=== PATIENT | male | born 1955 | race Two or more races ===

== ENCOUNTER 2021-05-27 14:33 | Inpatient (IN) | payer OTHER ==
[~2021-05-27] VITALS: Ht 167.6 cm; Wt 84.0 kg
--- NOTE | 2021-05-27 16:08 | PHYS DOC ---
General Adult EDM: Chief Complaint: URINARY RETENTION HPI: HPI: Patient is a 65-year-old male who presents to the emergency department today for urinary retention. Patient reports that he has not had any urine output for 3 days and his last bowel movement was on Tuesday. He reports dribbling. Patient is reporting constipation, abdominal distention and suprapubic pain. He reports that he was seen at the urgent care on Tuesday and was given Cipro for a urinary tract infection and placed on Flomax. Patient reports that he has been taking these medications without any relief in his symptoms. He denies any fevers, nausea, vomiting. He denies any medical history or surgical history. Review of Systems: Review of Systems: Constitutional: See HPI GI: See HPI : See HPI Heart Score: C/O Chest Pain: N/A Risk Factors: Risk Factors: DM, Current or recent (<one month) smoker, HTN, HLP, family history of CAD, obesity. Risk Scores: Score 0 - 3: 2.5% MACE over next 6 weeks - Discharge Home Score 4 - 6: 20.3% MACE over next 6 weeks - Admit for Clinical Observation Score 7 - 10: 72.7% MACE over next 6 weeks - Early Invasive Strategies Allergies: Allergies: Allergies Coded Allergies Type Severity Reaction Last Updated Verified No Known Drug Allergies 05/27/21 No Physical Exam: PE: Constitutional: Well developed, well nourished, no acute distress, non-toxic appearance. [] HENT: Normocephalic, atraumatic, bilateral external ears normal, oropharynx moist, no oral exudates, nose normal. [] Eyes: PERRL, EOMI, conjunctiva normal, no discharge. [] Neck: Normal range of motion, no stridor Cardiovascular:Heart rate regular rhythm, no murmur [] Lungs & Thorax: Bilateral breath sounds clear to auscultation [] Abdomen: Bowel sounds normal, firm, suprapubic tenderness with palpation, no masses, no pulsatile masses. [] Skin: Warm, dry, no erythema, no rash. [] Back: No tenderness Extremities: No tenderness, no cyanosis, no clubbing, ROM intact, no edema. [] Neurologic: Alert and oriented X 3, normal motor function, normal sensory function, no focal deficits noted. [] Psychologic: Affect normal, judgement normal, mood normal. [] Current Patient Data: Labs: Laboratory Tests Test 05/27/21 15:55 05/27/21 16:36 Urine Collection Type U cath Urine Color (Auto) Yellow Urine Turbidity Clear Urine pH (Auto) 5.0 Urine Specific [place] 1.007 Urine Protein (Auto) Negative mg/dL Urine Glucose (Auto)(UA) Negative mg/dL Urine Ketones (Auto) Negative mg/dL Urine Blood (Auto) Small Urine Nitrite Negative Urine Bilirubin (Auto) Negative Urine Urobilinogen (Auto) Normal mg/dL Urine Leukocyte Esterase (Auto) Negative Urine RBC 1-2 /HPF Urine WBC 1-4 /HPF Urine Transitional Epithelial Cells Occ /LPF Urine Bacteria 0 /HPF White Blood Count 13.0 x10^3/uL Red Blood Count 5.13 x10^6/uL Hemoglobin 14.9 g/dL Hematocrit 44.4 % Mean Corpuscular Volume 87 fL Mean Corpuscular Hemoglobin 29 pg Mean Corpuscular Hemoglobin Concent 34 g/dL Red Cell Distribution Width 13.7 % Platelet Count 176 x10^3/uL Neutrophils (%) (Auto) 76 % Lymphocytes (%) (Auto) 11 % Monocytes (%) (Auto) 12 % Eosinophils (%) (Auto) 1 % Basophils (%) (Auto) 0 % Neutrophils # (Auto) 9.9 x10^3/uL Lymphocytes # (Auto) 1.4 x10^3/uL Monocytes # (Auto) 1.6 x10^3/uL Eosinophils # (Auto) 0.1 x10^3/uL Basophils # (Auto) 0.0 x10^3/uL Sodium Level 131 mmol/L Potassium Level 4.7 mmol/L Chloride Level 94 mmol/L Carbon Dioxide Level 17 mmol/L Anion Gap 20 Blood Urea Nitrogen 77 mg/dL Creatinine 7.7 mg/dL Estimated GFR (Cockcroft-Gault) 7.2 BUN/Creatinine Ratio 10 Glucose Level 95 mg/dL Calcium Level 7.5 mg/dL Total Bilirubin 0.7 mg/dL Aspartate Amino Transf (AST/SGOT) 61 U/L Alanine Aminotransferase (ALT/SGPT) 78 U/L Alkaline Phosphatase 91 U/L Total Protein 7.1 g/dL Albumin 3.2 g/dL Albumin/Globulin Ratio 0.8 Current Medications Medications (Trade) Dose Ordered Sig/Skye Route PRN Reason Start Time Stop Time Status Last Admin Dose Admin Tamsulosin HCl (Flomax) 0.4 mg BID PO 05/27/21 21:00 Acetaminophen (Tylenol) 650 mg PRN Q6HRS PRN PO MILD PAIN / TEMP > 100.3'F 05/27/21 17:30 Ondansetron HCl (Zofran) 4 mg PRN Q4HRS PRN IVP NAUSEA/VOMITING 05/27/21 17:30 Tramadol HCl (Ultram) 50 mg PRN Q6HRS PRN PO PAIN 05/27/21 17:30 Fentanyl Citrate (Fentanyl 2ml Vial) 25 mcg PRN Q3HRS PRN IVP SEVERE PAIN 7-10 05/27/21 17:30 Heparin Sodium (Porcine) (Heparin Sodium) 5,000 unit Q8HRS SQ 05/27/21 22:00 Psyllium Hydrophilic Mucilloid (Metamucil Fiber Packet) 1 pkt QHS PO 05/27/21 21:00 Polyethylene Glycol (miraLAX PACKET) 17 gm PRN BID PRN PO CONSTIPATION 05/27/21 17:30 EKG: EKG: [] Radiology/Procedures: Radiology/Procedures: []INDICATION: Reason: ABDOMINAL DISTENTION, CONSTIPATION, R/O OBSTRUCTION / Spl. Instructions: / History: COMPARISON: None. TECHNIQUE: Axial CT images were obtained through the abdomen and pelvis without intravenous contrast. One or more of the following individualized dose reduction techniques were utilized for this examination: 1. Automated exposure control; 2. Adjustment of the mA and/or kV according to patient size; 3. Use of iterative reconstruction technique. FINDINGS: There is some distention of the distal esophagus with air and a small amount of fluid. Vascular: Scattered calcific atherosclerosis. Hepatobiliary: No intrahepatic biliary duct dilation. Pancreas: No peripancreatic edema. Spleen: Spleen unremarkable. Renal/Bladder: There is bilateral perinephric stranding as well as small amount of fluid most prominent on the right. Low-density lesion of the left kidney may be cystic in nature measuring approximately 32 mm. Urinary bladder is decompressed. Prostate appears enlarged. Catheter seen at the bladder. Symmetric appearance of the renal pelvis bilaterally. Calcification in the right hemipelvis. Given the location would favor that this is secondary to a phlebolith rather than a distal ureter stone. Gastrointestinal: There is some prominence the wall of the distal sigmoid and rectal region with some adjacent edema to the fat and small fluid in the presacral region. Tortuous appearance of colon with redundant appearance. There is some distention of the colon with gas and intraluminal content. At the right lower quadrant there is a tubular structure identified measuring up to about 8 mm and distended with intraluminal content. A portion of it is obscured by adjacent unopacified bowel loops. There is some edema and fluid seen tracking within the region. Limited assessment secondary to lack of contrast. Small fat-containing umbilical hernia. Degenerative changes the spine with scoliotic curvature with multilevel central canal and neural foraminal stenosis. Degenerative changes the bilateral hips. IMPRESSION: * Bilateral perinephric stranding is seen right greater than left with some distention of the right ureter also identified. Is also some fluid and edema tracking adjacent to the right ureter and also seen tracking adjacent to the loops of bowel the right lower quadrant. Could be related to urinary tract causes such as urinary tract infection or recently passed urinary tract stone. In addition this area of edema and fluid is also seen adjacent to the partially visualized suspected appendix with the appendix mildly dilated with fluid and air with portions of the appendix obscured secondary to lack of contrast and multiple unopacified loops of bowel within the region. Given this dilatation and fluid with edema in the region would correlate with symptoms since appendicitis cannot be excluded on this examination and CT with intravenous and oral contrast could better assess the GI tract given that it is unclear whether this fluid and edema is associated with a right renal/ureter process or if it is related to appendiceal inflammation. * There is also some wall thickening of the distal colon at the distal sigmoid and rectum with adjacent edema and fluid. Causes such as a distal colitis is not excluded. * There is a tortuous redundant appearance of the large bowel. * Suspected cystic lesion left kidney. * There is some edema to the fat seen adjacent to the prostate which appears enlarged. Could be associated with the adjacent distal sigmoid to rectal inflammation but superimposed prostatitis is not excluded given this finding. Electronically signed by: Vanesa Mccollum MD (05/27/2021 5:01 PM) [id number] DICTATED and SIGNED BY: VANESA MCCOLLUM MD DATE: 05/27/21 0290 Course & Med Decision Making: Course & Med Decision Making Pertinent Labs and Imaging studies reviewed. (See chart for details) [] Patient presents to the emergency department today for urinary retention and constipation. Patient reports he has not had any urinary output for 3 days and his last bowel movement was Tuesday. Bladder scan was ordered. Santa was placed by [employer]ODUCTION [employer]. Urinalysis, CBC and CMP performed. CT of abdomen and pelvis performed as patient is reporting distention, abdominal pain and constipation, concern for obstruction. Was noted to have leukocytosis with a white blood cell 13. Sodium was 131. BUN 77, creatinine 7.7 indicating acute kidney injury. Urinalysis does not show any signs of infection. Patient had approximately 2700 cc of urine output in his Santa catheter. CT T scan of abdomen and pelvis does show perinephric stranding and edema and inflammation surrounding his right ureter. The radiologist read it as possible appendicitis versus inflammation of the right ureter. Patient was also noted to have signs of colitis on his scan. I discussed these findings with urologist acquisitions analyst and they advised to continue to give patient Flomax and order a renal ultrasound. I discussed these findings with Dr. Macias with nephrology who ordered IV fluids and repeat labs for the morning. surgery consult placed. Discussed these findings with Dr. Hogan who agreed to admit the patient under his services for urinary retention and acute kidney injury. IV antibiotics ordered. I discussed these findings with patient and family member and they are agreeable to admission. ER bridge orders placed at this time 1755. Rupinder Disclaimer: Rupinder Disclaimer: This electronic medical record was generated, in whole or in part, using a voice recognition dictation system. Departure Departure Impression: Primary Impression: Urinary retention Additional Impression: GERRY (acute kidney injury) Disposition: 09 ADMITTED INPATIENT Admitting Physician: DANDRE Condition: STABLE Referrals: PARDEEP SANDOVAL III, MD (PCP) TAVO HAYES APRN May 27, 2021 16:07
[2021-05-27 16:31] LABS: BACTERIA,URINE 0 /HPF (0-FEW)
[2021-05-27 16:45] LABS: BASO % 0 % (0-3); EOS # 0.1 x10^3/uL (0.0-0.7); EOS % 1 % (0-3); HEMATOCRIT 44.4 % (39.0-53.0); HEMOGLOBIN 14.9 g/dL (13.0-17.5); LYMPH # 1.4 x10^3/uL (1.0-4.8); LYMPH % 11 % (24-48); MEAN CORPUSCULAR HEMOGLOBIN 29 pg (25-35); MEAN CORPUSCULAR HGB CONC 34 g/dL (31-37); MEAN CORPUSCULAR VOLUME 87 fL (79-100); MONO # 1.6 x10^3/uL (0.0-1.1); MONO % 12 % (0-9); NEUT # 9.9 x10^3/uL (1.8-7.7); NEUT % 76 % (31-73); PLATELET COUNT 176 x10^3/uL (140-400); RED BLOOD COUNT 5.13 x10^6/uL (4.30-5.70); RED CELL DISTRIBUTION WIDTH 13.7 % (11.5-14.5)
[2021-05-27 16:53] LABS: CALCIUM 7.5 mg/dL (8.5-10.1); CREATININE 7.7 mg/dL (0.7-1.3); GFR 7.2; POTASSIUM 4.7 mmol/L (3.5-5.1)
[2021-05-27 16:58] LABS: ALBUMIN 3.2 g/dL (3.4-5.0); ALBUMIN/GLOBULIN RATIO 0.8 (1.0-1.7); TOTAL BILIRUBIN 0.7 mg/dL (0.2-1.0); TOTAL PROTEIN 7.1 g/dL (6.4-8.2)
--- NOTE | 2021-05-27 17:03 | RAD ---
INDICATION: Reason: ABDOMINAL DISTENTION, CONSTIPATION, R/O OBSTRUCTION / Spl. Instructions: / Histo ry: COMPARISON: None. TECHNIQUE: Axial CT images were obtained through the abdomen and pelvis without intravenous contrast. One or more of the following individualized dose reduction techniques were utilized for this examinat ion: 1. Automated exposure control; 2. Adjustment of the mA and/or kV according to patient size; 3 . Use of iterative reconstruction technique. FINDINGS: There is some distention of the distal esophagus with air and a small amount of fluid. Vascular: Scattered calcific atherosclerosis. Hepatobiliary: No intrahepatic biliary duct dilation. Pancreas: No peripancreatic edema. Spleen: Spleen unremarkable. Renal/Bladder: There is bilateral perinephric stranding as well as small amount of fluid most promine nt on the right. Low-density lesion of the left kidney may be cystic in nature measuring approximatel y 32 mm. Urinary bladder is decompressed. Prostate appears enlarged. Catheter seen at the bladder. Sy mmetric appearance of the renal pelvis bilaterally. Calcification in the right hemipelvis. Given the location would favor that this is secondary to a phlebolith rather than a distal ureter stone. Gastrointestinal: There is some prominence the wall of the distal sigmoid and rectal region with some adjacent edema to the fat and small fluid in the presacral region. Tortuous appearance of colon with redundant appearance. There is some distention of the colon with gas and intraluminal content. At th e right lower quadrant there is a tubular structure identified measuring up to about 8 mm and distend ed with intraluminal content. A portion of it is obscured by adjacent unopacified bowel loops. There is some edema and fluid seen tracking within the region. Limited assessment secondary to lack of cont rast. Small fat-containing umbilical hernia. Degenerative changes the spine with scoliotic curvature with multilevel central canal and neural fora juliane stenosis. Degenerative changes the bilateral hips. IMPRESSION: * Bilateral perinephric stranding is seen right greater than left with some distention of the right ureter also identified. Is also some fluid and edema tracking adjacent to the right ureter and also seen tracking adjacent to the loops of bowel the right lower quadrant. Could be related to urinary tr act causes such as urinary tract infection or recently passed urinary tract stone. In addition this a patricia of edema and fluid is also seen adjacent to the partially visualized suspected appendix with the appendix mildly dilated with fluid and air with portions of the appendix obscured secondary to lack o f contrast and multiple unopacified loops of bowel within the region. Given this dilatation and fluid with edema in the region would correlate with symptoms since appendicitis cannot be excluded on this examination and CT with intravenous and oral contrast could better assess the GI tract given that it is unclear whether this fluid and edema is associated with a right renal/ureter process or if it is related to appendiceal inflammation. * There is also some wall thickening of the distal colon at the distal sigmoid and rectum with adjac ent edema and fluid. Causes such as a distal colitis is not excluded. * There is a tortuous redundant appearance of the large bowel. * Suspected cystic lesion left kidney. * There is some edema to the fat seen adjacent to the prostate which appears enlarged. Could be asso ciated with the adjacent distal sigmoid to rectal inflammation but superimposed prostatitis is not ex cluded given this finding. Electronically signed by: Edinson Jaramillo MD (05/27/2021 5:01 PM) [id number]
--- NOTE | 2021-05-27 17:22 | PDOC1 ---
History and Physical Date of Admission Date of Admission DATE: 05/27/21 TIME: 17:22 Identification/Chief Complaint Chief Complaint Abdominal pain, urinary retention Source Source: Caregiver, Chart review, Patient History of Present Illness History of Present Illness Mr Wright is a 64yo male, divehi-speaking only, with no past medical history comes to the ED accompanied by his son who assists in translation complaining of worsening suprapubic pain, constipation and urinary retention has been going on since 05/24/2021. When he initially had the pain urinary retention on 320 he went to urgent care and was told this was prostatitis and given prescription for Flomax and Cipro. He began taking medication on 05/25/2021 but failed to have any improvement and went to his primary care physician 05/27/2021 and given his symptoms was instructed to come directly to the ED. His last bowel movement was on Tuesday. He denies any fevers, nausea, vomiting. He denies any medical history or surgical history. He does not smoke drink or use illicit substances. No recent travel or sick contacts. He is fully vaccinated against COVID-19 including booster. Labs with WBC 13, Hb 14.9, platelets 176, NA 131, K4.7, BUN 77, CR 7.7, anion gap 20, glucose 95, calcium 7.5, albumin 3.2, alkaline phosphatase 91, ALT 78, AST 61, bilirubin 0.7, urinalysis with blood otherwise bland. CT abdomen pelvis with enlarged prostate, bilateral perinephric stranding right >>> left with some distention of the right ureter, possible cystic left kidney lesion, concern for slightly enlarged appendix, some distal colon possible inflammatory changes. Due to lack urination Santa catheter was placed in the ED with 2.7 L of urine output. He felt significant relief of his abdominal pain after this. Still without bowel movement. Admitted for further care. Past Medical History Cardiovascular: No pertinent hx Past Surgical History Past Surgical History: No pertinent history Family History Family History: No Significant Social History Smoke: No ALCOHOL: none Drugs: None Allergies Allergies: Coded Allergies: No Known Drug Allergies (Unverified , 05/27/21) ROS General: YES: Fatigue, Malaise, Appetite; No: Chills, Night Sweats, Other PSYCHOLOGICAL ROS: No: Anxiety, Behavioral Disorder, Concentration difficultie, Decreased libido, Depression, Disorientation, Hallucinations, Hostility, Irritablity, Memory difficulties, Mood Swings, Obsessive thoughts, Physical abuse, Sexual abuse, Sleep disturbances, Suicidal ideation, Other Eyes: No Blurry vision, No Decreased vision, No Double vision, No Dry eyes, No Excessive tearing, No Eye Pain, No Itchy Eyes, No Loss of vision, No Photophobia, No Scotomata, No Uses contacts, No Uses glasses, No Other HEENT: No: Heacaches, Visual Changes, Hearing change, Nasal congestion, Nasal discharge, Oral lesions, Sinus pain, Sore Throat, Epistaxis, Sneezing, Snoring, Tinnitus, Vertigo, Vocal changes, Other ALLERGY AND IMMUNOLOGY: No: Hives, Insect Bite Sensitivity, Itchy/Watery Eyes, Nasal Congestion, Post Nasal Drip, Seasonal Allergies, Other Hematological and Lymphatic: No: Bleeding Problems, Blood Clots, Blood Transfusions, Brusing, Night Sweats, Pallor, Swollen Lymph Nodes, Other ENDOCRINE: No: Breast Changes, Galactorrhea, Hair Pattern Changes, Hot Flashes, Malaise/lethargy, Mood Swings, Palpitations, Polydipsia/polyuria, Skin Changes, Temperature Intolerance, Unexpected Weight Changes, Other Breast: No New/Changing Breast Lumps, No Nipple changes, No Nipple discharge, No Other Respiratory: No: Cough, Hemoptysis, Orthopnea, Pleuritic Pain, Shortness of breath, SOB with excertion, Sputum Changes, Stridor, Tachypnea, Wheezing, Other Cardiovascular: No Chest Pain, No Palpitations, No Orthopnea, No Paroxysmal Noc. Dyspnea, No Edema, No Lt Headedness, No Other Gastrointestinal: Yes Nausea, Yes Abdominal Pain, Yes Constipation; No Vomiting, No Diarrhea, No Melena, No Hematochezia, No Other Genitourinary: YES Retention, YES Urgency, YES Pain; No Dysuria, No Frequency, No Incontinence, No Hematuria, No Discharge, No Flank Pain, No Other, No , No , No , No , No , No , No Musculoskeletal: No Gait Disturbance, No Joint Pain, No Joint Stiffness, No Joint Swelling, No Muscle Pain, No Muscular Weakness, No Pain In:, No Swelling In:, No Other Neurological: No Behavorial Changes, No Bowel/Bladder ControlChng, No Confusion, No Dizziness, No Gait Disturbance, No Headaches, No Impaired Coord/balance, No Memory Loss, No Numbness/Tingling, No Seizures, No Speech Problems, No Tremors, No Visual Changes, No Weakness, No Other Skin: No Dry Skin, No Eczema, No Hair Changes, No Lumps, No Mole Changes, No Mottling, No Nail Changes, No Pruritus, No Rash, No Skin Lesion Changes, No Other, No Acne Physical Exam General: Alert, Oriented X3, Cooperative, moderate distress HEENT: Atraumatic, PERRLA, EOMI, Mucous membr. moist/pink Lungs: Clear to auscultation, Normal air movement Heart: S1S2, RRR, no thrills, no rubs, no gallops, no murmurs Abdomen: Normal bowel sounds, Soft, No hepatosplenomegaly, No masses, Other (suprapubic tenderness) Male Genitals Exam: normal genitalia, high riding prostate Rectal Exam: other (enlarged prostate) Extremities: No clubbing, No cyanosis, No edema, Normal pulses, No tenderness/swelling Skin: No rashes, No breakdown, No significant lesion Neuro: Normal gait, Normal speech, Strength at 5/5 X4 ext, Normal tone, Sensation intact, Cranial nerves 3-12 NL, Reflexes 2+ Psych/Mental Status: Mental status NL, Mood NL Vitals Vitals Vital Signs Date Time Temp Pulse Resp B/P (MAP) Pulse Ox O2 Delivery O2 Flow Rate FiO2 05/27/21 16:02 97.9 81 16 181/105 (130) 97 97.9 Labs Labs Laboratory Tests Test 05/27/21 15:55 05/27/21 16:36 Urine Collection Type U cath Urine Color (Auto) Yellow Urine Turbidity Clear Urine pH (Auto) 5.0 (<5.0-8.0) Urine Specific Arnold 1.007 (1.000-1.030) Urine Protein (Auto) Negative mg/dL (Negative) Urine Glucose (Auto)(UA) Negative mg/dL (Negative) Urine Ketones (Auto) Negative mg/dL (Negative) Urine Blood (Auto) Small (Negative) Urine Nitrite Negative (Negative) Urine Bilirubin (Auto) Negative (Negative) Urine Urobilinogen (Auto) Normal mg/dL (Normal) Urine Leukocyte Esterase (Auto) Negative (Negative) Urine RBC 1-2 /HPF (0-2) Urine WBC 1-4 /HPF (0-4) Urine Transitional Epithelial Cells Occ /LPF Urine Bacteria 0 /HPF (0-FEW) White Blood Count 13.0 x10^3/uL (4.0-11.0) Red Blood Count 5.13 x10^6/uL (4.30-5.70) Hemoglobin 14.9 g/dL (13.0-17.5) Hematocrit 44.4 % (39.0-53.0) Mean Corpuscular Volume 87 fL (79-100) Mean Corpuscular Hemoglobin 29 pg (25-35) Mean Corpuscular Hemoglobin Concent 34 g/dL (31-37) Red Cell Distribution Width 13.7 % (11.5-14.5) Platelet Count 176 x10^3/uL (140-400) Neutrophils (%) (Auto) 76 % (31-73) Lymphocytes (%) (Auto) 11 % (24-48) Monocytes (%) (Auto) 12 % (0-9) Eosinophils (%) (Auto) 1 % (0-3) Basophils (%) (Auto) 0 % (0-3) Neutrophils # (Auto) 9.9 x10^3/uL (1.8-7.7) Lymphocytes # (Auto) 1.4 x10^3/uL (1.0-4.8) Monocytes # (Auto) 1.6 x10^3/uL (0.0-1.1) Eosinophils # (Auto) 0.1 x10^3/uL (0.0-0.7) Basophils # (Auto) 0.0 x10^3/uL (0.0-0.2) Sodium Level 131 mmol/L (136-145) Potassium Level 4.7 mmol/L (3.5-5.1) Chloride Level 94 mmol/L (98-107) Carbon Dioxide Level 17 mmol/L (21-32) Anion Gap 20 (6-14) Blood Urea Nitrogen 77 mg/dL (8-26) Creatinine 7.7 mg/dL (0.7-1.3) Estimated GFR (Cockcroft-Gault) 7.2 BUN/Creatinine Ratio 10 (6-20) Glucose Level 95 mg/dL (70-99) Calcium Level 7.5 mg/dL (8.5-10.1) Total Bilirubin 0.7 mg/dL (0.2-1.0) Aspartate Amino Transf (AST/SGOT) 61 U/L (15-37) Alanine Aminotransferase (ALT/SGPT) 78 U/L (16-63) Alkaline Phosphatase 91 U/L (46-116) Total Protein 7.1 g/dL (6.4-8.2) Albumin 3.2 g/dL (3.4-5.0) Albumin/Globulin Ratio 0.8 (1.0-1.7) Laboratory Tests Test 05/27/21 15:55 05/27/21 16:36 Urine Collection Type U cath Urine Color (Auto) Yellow Urine Turbidity Clear Urine pH (Auto) 5.0 (<5.0-8.0) Urine Specific Arnold 1.007 (1.000-1.030) Urine Protein (Auto) Negative mg/dL (Negative) Urine Glucose (Auto)(UA) Negative mg/dL (Negative) Urine Ketones (Auto) Negative mg/dL (Negative) Urine Blood (Auto) Small (Negative) Urine Nitrite Negative (Negative) Urine Bilirubin (Auto) Negative (Negative) Urine Urobilinogen (Auto) Normal mg/dL (Normal) Urine Leukocyte Esterase (Auto) Negative (Negative) Urine RBC 1-2 /HPF (0-2) Urine WBC 1-4 /HPF (0-4) Urine Transitional Epithelial Cells Occ /LPF Urine Bacteria 0 /HPF (0-FEW) White Blood Count 13.0 x10^3/uL (4.0-11.0) Red Blood Count 5.13 x10^6/uL (4.30-5.70) Hemoglobin 14.9 g/dL (13.0-17.5) Hematocrit 44.4 % (39.0-53.0) Mean Corpuscular Volume 87 fL (79-100) Mean Corpuscular Hemoglobin 29 pg (25-35) Mean Corpuscular Hemoglobin Concent 34 g/dL (31-37) Red Cell Distribution Width 13.7 % (11.5-14.5) Platelet Count 176 x10^3/uL (140-400) Neutrophils (%) (Auto) 76 % (31-73) Lymphocytes (%) (Auto) 11 % (24-48) Monocytes (%) (Auto) 12 % (0-9) Eosinophils (%) (Auto) 1 % (0-3) Basophils (%) (Auto) 0 % (0-3) Neutrophils # (Auto) 9.9 x10^3/uL (1.8-7.7) Lymphocytes # (Auto) 1.4 x10^3/uL (1.0-4.8) Monocytes # (Auto) 1.6 x10^3/uL (0.0-1.1) Eosinophils # (Auto) 0.1 x10^3/uL (0.0-0.7) Basophils # (Auto) 0.0 x10^3/uL (0.0-0.2) Sodium Level 131 mmol/L (136-145) Potassium Level 4.7 mmol/L (3.5-5.1) Chloride Level 94 mmol/L (98-107) Carbon Dioxide Level 17 mmol/L (21-32) Anion Gap 20 (6-14) Blood Urea Nitrogen 77 mg/dL (8-26) Creatinine 7.7 mg/dL (0.7-1.3) Estimated GFR (Cockcroft-Gault) 7.2 BUN/Creatinine Ratio 10 (6-20) Glucose Level 95 mg/dL (70-99) Calcium Level 7.5 mg/dL (8.5-10.1) Total Bilirubin 0.7 mg/dL (0.2-1.0) Aspartate Amino Transf (AST/SGOT) 61 U/L (15-37) Alanine Aminotransferase (ALT/SGPT) 78 U/L (16-63) Alkaline Phosphatase 91 U/L (46-116) Total Protein 7.1 g/dL (6.4-8.2) Albumin 3.2 g/dL (3.4-5.0) Albumin/Globulin Ratio 0.8 (1.0-1.7) Images Images CT ABDOMEN PELVIS WO CONTRAST: There is some distention of the distal esophagus with air and a small amount of fluid. Vascular: Scattered calcific atherosclerosis. Hepatobiliary: No intrahepatic biliary duct dilation. Pancreas: No peripancreatic edema. Spleen: Spleen unremarkable. Renal/Bladder: There is bilateral perinephric stranding as well as small amount of fluid most prominent on the right. Low-density lesion of the left kidney may be cystic in nature measuring approximately 32 mm. Urinary bladder is decompressed. Prostate appears enlarged. Catheter seen at the bladder. Symmetric appearance of the renal pelvis bilaterally. Calcification in the right hemipelvis. Given the location would favor that this is secondary to a phlebolith rather than a distal ureter stone. Gastrointestinal: There is some prominence the wall of the distal sigmoid and rectal region with some adjacent edema to the fat and small fluid in the presacral region. Tortuous appearance of colon with redundant appearance. There is some distention of the colon with gas and intraluminal content. At the right lower quadrant there is a tubular structure identified measuring up to about 8 mm and distended with intraluminal content. A portion of it is obscured by adjacent unopacified bowel loops. There is some edema and fluid seen tracking within the region. Limited assessment secondary to lack of contrast. Small fat-containing umbilical hernia. Degenerative changes the spine with scoliotic curvature with multilevel central canal and neural foraminal stenosis. Degenerative changes the bilateral hips. IMPRESSION: * Bilateral perinephric stranding is seen right greater than left with some distention of the right ureter also identified. Is also some fluid and edema tracking adjacent to the right ureter and also seen tracking adjacent to the loops of bowel the right lower quadrant. Could be related to urinary tract causes such as urinary tract infection or recently passed urinary tract stone. In addition this area of edema and fluid is also seen adjacent to the partially visualized suspected appendix with the appendix mildly dilated with fluid and air with portions of the appendix obscured secondary to lack of contrast and multiple unopacified loops of bowel within the region. Given this dilatation and fluid with edema in the region would correlate with symptoms since appendicitis cannot be excluded on this examination and CT with intravenous and oral contrast could better assess the GI tract given that it is unclear whether this fluid and edema is associated with a right renal/ureter process or if it is related to appendiceal inflammation. * There is also some wall thickening of the distal colon at the distal sigmoid and rectum with adjacent edema and fluid. Causes such as a distal colitis is not excluded. * There is a tortuous redundant appearance of the large bowel. * Suspected cystic lesion left kidney. * There is some edema to the fat seen adjacent to the prostate which appears enlarged. Could be associated with the adjacent distal sigmoid to rectal inflammation but superimposed prostatitis is not excluded given this finding. VTE Prophylaxis Ordered VTE Prophylaxis Devices: No VTE Pharmacological Prophylaxi: Yes Assessment/Plan Assessment/Plan Intractable abdominal pain -likely due to urinary retention, prostatitis, early pyelonephritis. Less likely appendicitis. Will have general surgery evaluate and review CT. Urinary retention -likely due to acute prostatitis. Will maintain Santa cath eter. Consult urology for further recommendations. Tamsulosin twice daily for now. Constipation -aggressive bowel regimen. Possibly secondary to prostatitis. GERRY -likely vasomotor nephropathy from prostatitis but also postobstructive due to urinary retention. Will monitor creatinine. Consult nephrology. Hyponatremia -likely hypovolemic. Will monitor. Anion gap metabolic acidosis -likely due to uremia from renal failure. Will monitor SIRS - with GERRY, likely due to prostatitis. Will give aggressive IVF, cipro for presumptive prostatitis Uremia -due to renal failure. Will monitor Transaminitis -possibly due to constipation. Will check acute hepatitis profile. Monitor LFTs. FEN - regular diet PPX - heparin FULL CODE Dispo - inpatient Justifications for Admission Other Justification NOE GOLDBERG MD May 27, 2021 17:22
[2021-05-27] MEDS ORDERED: POLYETHYLENE GLYCOL 3350 17 GM PACKET. PO PRN (17:30)
[2021-05-27] MEDS ORDERED: ACETAMINOPHEN 325 MG TABLET. PO PRN (17:30)
[2021-05-27] MEDS ORDERED: traMADol 50 MG TABLET PO PRN (17:30)
[2021-05-27] MEDS ORDERED: ONDANSETRON PF 4 MG/2 ML VIAL. IVP PRN ×2 (17:30→18:00)
[2021-05-27] MEDS ORDERED: fentaNYL PF VIAL 100 MCG/2 ML VIAL IVP PRN (17:30)
[2021-05-27] MEDS ORDERED: MORPHINE SULFATE 2 MG/ML INJ. IVP PRN (18:00)
[2021-05-27] MEDS ORDERED: TAMSULOSIN 0.4 MG CAP.ER.24H. PO ONE (18:00)
[2021-05-27] MEDS ORDERED: PIP/TAZO PER PHARMACY MC PRN (18:00)
[2021-05-27] MEDS ORDERED: IV NORMAL SALINE 1000ML BAG 1,000 ML IV ONE (18:00)
[2021-05-27] MEDS ORDERED: PIPERACILLIN/TAZOBACTAM 2.25 GM in IV NORMAL SALINE 50ML 50 ML IV SCH (19:00)
[2021-05-27 20:02] VITALS: BP 132/78
--- NOTE | 2021-05-27 20:17 | RAD ---
EXAM: RENAL ULTRASOUND CLINICAL HISTORY: Reason: urinary retention / Spl. Instructions: / History: COMPARISON: None available. TECHNIQUE: Ultrasound examination of the bilateral kidneys and urinary bladder was performed. FINDINGS: Right kidney measures 12.4 cm long axis. No hydronephrosis. Left kidney measures 12.7 cm in long axis. No hydronephrosis. Simple cyst in the left kidney measurin g up to 3.5 cm Bladder is decompressed not well evaluated. Visualized portions aorta and IVC are unremarkable. IMPRESSION: No hydronephrosis. Bladder is decompressed. Electronically signed by: Henri Hills MD (05/27/2021 8:15 PM) FLORI
[2021-05-27] MEDS: HEPARIN for SUB-Q USE 5,000 UNIT/ML VIAL. SQ SCH (21:35)
[2021-05-27] MEDS: TAMSULOSIN 0.4 MG CAP.ER.24H. PO SCH (21:35)
[2021-05-27] MEDS: PSYLLIUM HUSK (SUGAR FREE) 1 PKT PACKET PO SCH (21:36)
[2021-05-27 23:30] VITALS: BP 123/82
[2021-05-28 03:24] VITALS: BP 114/73
[2021-05-28] MEDS: HEPARIN for SUB-Q USE 5,000 UNIT/ML VIAL. SQ SCH ×3 (06:19→20:55)
[2021-05-28 07:15] VITALS: BP 120/85
[2021-05-28] MEDS: TAMSULOSIN 0.4 MG CAP.ER.24H. PO SCH ×2 (08:46→20:46)
--- NOTE | 2021-05-28 09:15 | PDOC2 ---
CONSULT Date of Consult Date of Consult DATE: 05/28/21 TIME: 09:10 Reason for Consult Reason for Consult: abnormal appendix on CT Referring Physician Referring Physician: ER Identification/Chief Complaint Chief Complaint suprapubic pain Source Source: Caregiver, Chart review, Patient History of Present Illness Reason for Visit: Admitted with suprapubic and groin pain worsening since 05/24. Symptoms began 05/24 with retention, pain. Seen in urgent care, treated for prostatitis with flomax and cipro. He continued to have inability to void, worsening p ressure/pain. Seen in ER, immediate relief with lopez catheter placement. Currently denies pain, no nausea, no fevers. Still constipation issues Past Medical History Cardiovascular: No pertinent hx Past Surgical History Past Surgical History: No pertinent history Family History Family History: No Significant Social History No ALCOHOL: none Drugs: None Current Problem List Problem List Problems Medical Problems: (1) GERRY (acute kidney injury) Status: Acute (2) Urinary retention Status: Acute Current Medications Current Medications Current Medications Tamsulosin HCl (Flomax) 0.4 mg BID PO Last administered on 05/28/21at 08:46; Start 05/27/21 at 21:00 Acetaminophen (Tylenol) 650 mg PRN Q6HRS PRN PO MILD PAIN / TEMP > 100.3'F; Start 05/27/21 at 17:30 Ondansetron HCl (Zofran) 4 mg PRN Q4HRS PRN IVP NAUSEA/VOMITING; Start 05/27/21 at 17:30 Tramadol HCl (Ultram) 50 mg PRN Q6HRS PRN PO PAIN; Start 05/27/21 at 17:30 Fentanyl Citrate (Fentanyl 2ml Vial) 25 mcg PRN Q3HRS PRN IVP SEVERE PAIN 7-10; Start 05/27/21 at 17:30 Heparin Sodium (Porcine) (Heparin Sodium) 5,000 unit Q8HRS SQ Last administered on 05/28/21at 06:19; Start 05/27/21 at 22:00 Psyllium Hydrophilic Mucilloid (Metamucil Fiber Packet) 1 pkt QHS PO Last administered on 05/27/21at 21:36; Start 05/27/21 at 21:00 Polyethylene Glycol (miraLAX PACKET) 17 gm PRN BID PRN PO CONSTIPATION; Start 05/27/21 at 17:30 Tamsulosin HCl (Flomax) 0.4 mg 1X ONCE PO ; Start 05/27/21 at 18:00; Stop 05/27/21 at 18:05; Status DC Piperacillin Sod/ Tazobactam Sod (Zosyn Per Pharmacy) 1 each PRN DAILY PRN MC SEE COMMENTS; Start 05/27/21 at 18:00 Sodium Chloride 1,000 ml @ 125 mls/hr 1X ONCE IV Last administered on 05/27/21at 18:42; Start 05/27/21 at 18:00; Stop 05/28/21 at 01:59; Status DC Ondansetron HCl (Zofran) 4 mg PRN Q8HRS PRN IVP NAUSEA/VOMITING; Start 05/27/21 at 18:00; Stop 05/28/21 at 17:59 Morphine Sulfate (Morphine Sulfate) 2 mg PRN Q2HR PRN IVP PAIN; Start 05/27/21 at 18:00; Stop 05/28/21 at 17:59 Piperacillin Sod/ Tazobactam Sod 2.25 gm/Sodium Chloride 50 ml @ 100 mls/hr Q8H IV Last administered on 05/28/21at 02:44; Start 05/27/21 at 19:00 Allergies Allergies: Coded Allergies: No Known Drug Allergies (Unverified , 05/27/21) ROS General: No: Chills, Other (fevers) PSYCHOLOGICAL ROS: No: Anxiety, Depression Eyes: No Blurry vision, No Decreased vision HEENT: No: Heacaches, Sore Throat Hematological and Lymphatic: No: Bleeding Problems, Blood Clots Respiratory: No: Cough, Shortness of breath Cardiovascular: No Chest Pain, No Palpitations Gastrointestinal: No Nausea, No Vomiting, No Abdominal Pain Genitourinary: YES Other (see hpi) Musculoskeletal: No Joint Pain, No Muscle Pain Neurological: No Impaired Coord/balance, No Numbness/Tingling Skin: No Pruritus, No Rash Physical Exam General: Alert, Oriented X3, Cooperative HEENT: Atraumatic, PERRLA Lungs: Clear to auscultation, Normal air movement Heart: Regular rate, Normal S1, Normal S2 Abdomen: Soft, No tenderness, Other (ND) Extremities: No clubbing, No cyanosis Skin: No rashes, No breakdown Neuro: Normal gait, Normal speech Psych/Mental Status: Mental status NL, Mood NL MUSCULOSKELETAL: No deformity, No swelling Vitals VITALS Vital Signs Date Time Temp Pulse Resp B/P (MAP) Pulse Ox O2 Delivery O2 Flow Rate FiO2 05/28/21 07:15 98.0 75 18 120/85 (97) 96 Room Air 98.0 Labs Labs Laboratory Tests Test 05/27/21 15:55 05/27/21 16:36 Urine Collection Type U cath Urine Color (Auto) Yellow Urine Turbidity Clear Urine pH (Auto) 5.0 (<5.0-8.0) Urine Specific Lockhart 1.007 (1.000-1.030) Urine Protein (Auto) Negative mg/dL (Negative) Urine Glucose (Auto)(UA) Negative mg/dL (Negative) Urine Ketones (Auto) Negative mg/dL (Negative) Urine Blood (Auto) Small (Negative) Urine Nitrite Negative (Negative) Urine Bilirubin (Auto) Negative (Negative) Urine Urobilinogen (Auto) Normal mg/dL (Normal) Urine Leukocyte Esterase (Auto) Negative (Negative) Urine RBC 1-2 /HPF (0-2) Urine WBC 1-4 /HPF (0-4) Urine Transitional Epithelial Cells Occ /LPF Urine Bacteria 0 /HPF (0-FEW) White Blood Count 13.0 x10^3/uL (4.0-11.0) Red Blood Count 5.13 x10^6/uL (4.30-5.70) Hemoglobin 14.9 g/dL (13.0-17.5) Hematocrit 44.4 % (39.0-53.0) Mean Corpuscular Volume 87 fL (79-100) Mean Corpuscular Hemoglobin 29 pg (25-35) Mean Corpuscular Hemoglobin Concent 34 g/dL (31-37) Red Cell Distribution Width 13.7 % (11.5-14.5) Platelet Count 176 x10^3/uL (140-400) Neutrophils (%) (Auto) 76 % (31-73) Lymphocytes (%) (Auto) 11 % (24-48) Monocytes (%) (Auto) 12 % (0-9) Eosinophils (%) (Auto) 1 % (0-3) Basophils (%) (Auto) 0 % (0-3) Neutrophils # (Auto) 9.9 x10^3/uL (1.8-7.7) Lymphocytes # (Auto) 1.4 x10^3/uL (1.0-4.8) Monocytes # (Auto) 1.6 x10^3/uL (0.0-1.1) Eosinophils # (Auto) 0.1 x10^3/uL (0.0-0.7) Basophils # (Auto) 0.0 x10^3/uL (0.0-0.2) Sodium Level 131 mmol/L (136-145) Potassium Level 4.7 mmol/L (3.5-5.1) Chloride Level 94 mmol/L (98-107) Carbon Dioxide Level 17 mmol/L (21-32) Anion Gap 20 (6-14) Blood Urea Nitrogen 77 mg/dL (8-26) Creatinine 7.7 mg/dL (0.7-1.3) Estimated GFR (Cockcroft-Gault) 7.2 BUN/Creatinine Ratio 10 (6-20) Glucose Level 95 mg/dL (70-99) Calcium Level 7.5 mg/dL (8.5-10.1) Total Bilirubin 0.7 mg/dL (0.2-1.0) Aspartate Amino Transf (AST/SGOT) 61 U/L (15-37) Alanine Aminotransferase (ALT/SGPT) 78 U/L (16-63) Alkaline Phosphatase 91 U/L (46-116) Total Protein 7.1 g/dL (6.4-8.2) Albumin 3.2 g/dL (3.4-5.0) Albumin/Globulin Ratio 0.8 (1.0-1.7) Hepatitis A IgM Antibody Nonreactive (Nonreactive) Hepatitis B Surface Antigen Nonreactive (Nonreactive) Hepatitis B Core IgM Antibody Nonreactive (Nonreactive) Hepatitis C IgG Antibody Nonreactive (Nonreactive) Laboratory Tests Test 05/27/21 15:55 05/27/21 16:36 Urine Collection Type U cath Urine Color (Auto) Yellow Urine Turbidity Clear Urine pH (Auto) 5.0 (<5.0-8.0) Urine Specific Lockhart 1.007 (1.000-1.030) Urine Protein (Auto) Negative mg/dL (Negative) Urine Glucose (Auto)(UA) Negative mg/dL (Negative) Urine Ketones (Auto) Negative mg/dL (Negative) Urine Blood (Auto) Small (Negative) Urine Nitrite Negative (Negative) Urine Bilirubin (Auto) Negative (Negative) Urine Urobilinogen (Auto) Normal mg/dL (Normal) Urine Leukocyte Esterase (Auto) Negative (Negative) Urine RBC 1-2 /HPF (0-2) Urine WBC 1-4 /HPF (0-4) Urine Transitional Epithelial Cells Occ /LPF Urine Bacteria 0 /HPF (0-FEW) White Blood Count 13.0 x10^3/uL (4.0-11.0) Red Blood Count 5.13 x10^6/uL (4.30-5.70) Hemoglobin 14.9 g/dL (13.0-17.5) Hematocrit 44.4 % (39.0-53.0) Mean Corpuscular Volume 87 fL (79-100) Mean Corpuscular Hemoglobin 29 pg (25-35) Mean Corpuscular Hemoglobin Concent 34 g/dL (31-37) Red Cell Distribution Width 13.7 % (11.5-14.5) Platelet Count 176 x10^3/uL (140-400) Neutrophils (%) (Auto) 76 % (31-73) Lymphocytes (%) (Auto) 11 % (24-48) Monocytes (%) (Auto) 12 % (0-9) Eosinophils (%) (Auto) 1 % (0-3) Basophils (%) (Auto) 0 % (0-3) Neutrophils # (Auto) 9.9 x10^3/uL (1.8-7.7) Lymphocytes # (Auto) 1.4 x10^3/uL (1.0-4.8) Monocytes # (Auto) 1.6 x10^3/uL (0.0-1.1) Eosinophils # (Auto) 0.1 x10^3/uL (0.0-0.7) Basophils # (Auto) 0.0 x10^3/uL (0.0-0.2) Sodium Level 131 mmol/L (136-145) Potassium Level 4.7 mmol/L (3.5-5.1) Chloride Level 94 mmol/L (98-107) Carbon Dioxide Level 17 mmol/L (21-32) Anion Gap 20 (6-14) Blood Urea Nitrogen 77 mg/dL (8-26) Creatinine 7.7 mg/dL (0.7-1.3) Estimated GFR (Cockcroft-Gault) 7.2 BUN/Creatinine Ratio 10 (6-20) Glucose Level 95 mg/dL (70-99) Calcium Level 7.5 mg/dL (8.5-10.1) Total Bilirubin 0.7 mg/dL (0.2-1.0) Aspartate Amino Transf (AST/SGOT) 61 U/L (15-37) Alanine Aminotransferase (ALT/SGPT) 78 U/L (16-63) Alkaline Phosphatase 91 U/L (46-116) Total Protein 7.1 g/dL (6.4-8.2) Albumin 3.2 g/dL (3.4-5.0) Albumin/Globulin Ratio 0.8 (1.0-1.7) Hepatitis A IgM Antibody Nonreactive (Nonreactive) Hepatitis B Surface Antigen Nonreactive (Nonreactive) Hepatitis B Core IgM Antibody Nonreactive (Nonreactive) Hepatitis C IgG Antibody Nonreactive (Nonreactive) Assessment/Plan Assessment/Plan Urinary retention, prostatitis, GERRY CT findings likely c/w with inflammatory findings from perinephric stranding--low suspicion of appendicitis will follow, currently no surgical plans ELYSIA ROSS [employer] May 28, 2021 09:15
--- NOTE | 2021-05-28 09:43 | PDOC2 ---
CONSULT Date of Consult Date of Consult DATE: 05/28/21 TIME: 09:43 Reason for Consult Reason for Consult: GERRY Identification/Chief Complaint Chief Complaint No complaints currently Source Source: Chart review, Patient History of Present Illness Reason for Visit: Mr Wright is a 64yo male, indian-speaking only, with no past medical history comes to the ED accompanied by his son complaining of worsening suprapubic pain, constipation and urinary retention has been going on since 05/24/2021. When he initially had the pain urinary retention on 05/24 he went to urgent care and was told this was prostatitis and given prescription for Flomax and Cipro. He began taking medication on 05/25/2021 but failed to have any improvement and went to his primary care physician 05/27/2021 and given his symptoms was instructed to come directly to the ED. His last bowel movement was on Tuesday. He denies any fevers, nausea, vomiting. He denies any medical history or surgical history. He does not smoke drink or use illicit substances. No recent travel or sick contacts. He is fully vaccinated against COVID-19 including booster. Due to lack of urination Santa catheter was placed in the ED with 1.7 L of urine output. Patient reports prior to this he was having severe Suprapubuc and Lt flank pain but relieved after Santa No significant PMHx, doesnt have a PCP . Denies use of chronic NSAID's or any PTC health supplements. Not any prescribed meds . No Significant FHx CT abdomen pelvis with enlarged prostate, bilateral perinephric stranding right >>> left with some distention of the right ureter, possible cystic left kidney lesion, concern for slightly enlarged appendix, some distal colon possible inflammatory changes. History Obtained from daughter in law -interpreting- at bed side Past Medical History Cardiovascular: No pertinent hx Past Surgical History Past Surgical History: No pertinent history Family History Family History: No Significant Social History No ALCOHOL: none Drugs: None Current Problem List Problem List Problems Medical Problems: (1) GERRY (acute kidney injury) Status: Acute (2) Urinary retention Status: Acute Current Medications Current Medications Current Medications Tamsulosin HCl (Flomax) 0.4 mg BID PO Last administered on 05/28/21at 08:46; Start 05/27/21 at 21:00 Acetaminophen (Tylenol) 650 mg PRN Q6HRS PRN PO MILD PAIN / TEMP > 100.3'F; Start 05/27/21 at 17:30 Ondansetron HCl (Zofran) 4 mg PRN Q4HRS PRN IVP NAUSEA/VOMITING; Start 05/27/21 at 17:30 Tramadol HCl (Ultram) 50 mg PRN Q6HRS PRN PO PAIN; Start 05/27/21 at 17:30 Fentanyl Citrate (Fentanyl 2ml Vial) 25 mcg PRN Q3HRS PRN IVP SEVERE PAIN 7-10; Start 05/27/21 at 17:30 Heparin Sodium (Porcine) (Heparin Sodium) 5,000 unit Q8HRS SQ Last administered on 05/28/21at 06:19; Start 05/27/21 at 22:00 Psyllium Hydrophilic Mucilloid (Metamucil Fiber Packet) 1 pkt QHS PO Last administered on 05/27/21at 21:36; Start 05/27/21 at 21:00 Polyethylene Glycol (miraLAX PACKET) 17 gm PRN BID PRN PO CONSTIPATION; Start 05/27/21 at 17:30 Tamsulosin HCl (Flomax) 0.4 mg 1X ONCE PO ; Start 05/27/21 at 18:00; Stop 05/27/21 at 18:05; Status DC Piperacillin Sod/ Tazobactam Sod (Zosyn Per Pharmacy) 1 each PRN DAILY PRN MC SEE COMMENTS; Start 05/27/21 at 18:00 Sodium Chloride 1,000 ml @ 125 mls/hr 1X ONCE IV Last administered on 05/27/21at 18:42; Start 05/27/21 at 18:00; Stop 05/28/21 at 01:59; Status DC Ondansetron HCl (Zofran) 4 mg PRN Q8HRS PRN IVP NAUSEA/VOMITING; Start 05/27/21 at 18:00; Stop 05/28/21 at 17:59 Morphine Sulfate (Morphine Sulfate) 2 mg PRN Q2HR PRN IVP PAIN; Start 05/27/21 at 18:00; Stop 05/28/21 at 17:59 Piperacillin Sod/ Tazobactam Sod 2.25 gm/Sodium Chloride 50 ml @ 100 mls/hr Q8H IV Last administered on 05/28/21at 02:44; Start 05/27/21 at 19:00 Allergies Allergies: Coded Allergies: No Known Drug Allergies (Unverified , 05/27/21) ROS Review of System As per HPI, rest of the ROS is negative Physical Exam Physical Exam General: NAD HEENT: Atraumatic, PERRLA, EOMI, Mucous membr. moist/pink Neck Supple Lungs: Clear to auscultation, Non labored Heart: S1S2, RRR, no thrills, no rubs, no gallops, no murmurs Abdomen: Normal bowel sounds, Soft, No hepatosplenomegaly, Extremities: No clubbing, No cyanosis, No edema, Skin: No rashes, Neuro: Normal gait, Normal speech, Strength at 5/5 X4 ext, Normal tone, Sensation intact, Cranial nerves 3-12 NL, Reflexes 2+ Psych/Mental Status: Mental status NL, Mood NL Santa Placed in the ER , No SP or CVA tenderness at present Vital Signs Vital Signs Date Time Temp Pulse Resp B/P (MAP) Pulse Ox O2 Delivery O2 Flow Rate FiO2 05/28/21 07:15 98.0 75 18 120/85 (97) 96 Room Air 98.0 Assessment & Plan GERRY - 2/2Urinary Retention/ No e/o Hydronephrosis on US.UA unremarkable, No UTI . Had 1.7 Lt Urinary retention , currently has Santa with uop cw Polyuria . Maintain fluid balance/Hydration, Renal function improving(baseline unknown) . E-Lytes stable, No emergent indication for dialysis . Avoid Nephrotoxins Hyponatremia POA -likely hypovolemic; resolved with IVF Acidosis- POA- 2/2 GERRY- resolved Abnormal CT abdomen - Bilateral perinephric stranding with fluid and edema tracking adjacent to the right ureter and also seen tracking adjacent to the loops of bowel the right lower quadrant Suspect urinary tract causes such as urinary tract infection or recently passed urinary tract stone. UA unremarbale - No UTI, No Micr hematuria Intractable abdominal pain POA -likely due to urinary retention early pyelonephritis. Urinary retention -likely due to acute prostatitis. Santa catheter. Consult urology for further recommendations. . Labs Labs Laboratory Tests Test 05/27/21 15:55 05/27/21 16:36 Urine Collection Type U cath Urine Color (Auto) Yellow Urine Turbidity Clear Urine pH (Auto) 5.0 (<5.0-8.0) Urine Specific [place] 1.007 (1.000-1.030) Urine Protein (Auto) Negative mg/dL (Negative) Urine Glucose (Auto)(UA) Negative mg/dL (Negative) Urine Ketones (Auto) Negative mg/dL (Negative) Urine Blood (Auto) Small (Negative) Urine Nitrite Negative (Negative) Urine Bilirubin (Auto) Negative (Negative) Urine Urobilinogen (Auto) Normal mg/dL (Normal) Urine Leukocyte Esterase (Auto) Negative (Negative) Urine RBC 1-2 /HPF (0-2) Urine WBC 1-4 /HPF (0-4) Urine Transitional Epithelial Cells Occ /LPF Urine Bacteria 0 /HPF (0-FEW) White Blood Count 13.0 x10^3/uL (4.0-11.0) Red Blood Count 5.13 x10^6/uL (4.30-5.70) Hemoglobin 14.9 g/dL (13.0-17.5) Hematocrit 44.4 % (39.0-53.0) Mean Corpuscular Volume 87 fL (79-100) Mean Corpuscular Hemoglobin 29 pg (25-35) Mean Corpuscular Hemoglobin Concent 34 g/dL (31-37) Red Cell Distribution Width 13.7 % (11.5-14.5) Platelet Count 176 x10^3/uL (140-400) Neutrophils (%) (Auto) 76 % (31-73) Lymphocytes (%) (Auto) 11 % (24-48) Monocytes (%) (Auto) 12 % (0-9) Eosinophils (%) (Auto) 1 % (0-3) Basophils (%) (Auto) 0 % (0-3) Neutrophils # (Auto) 9.9 x10^3/uL (1.8-7.7) Lymphocytes # (Auto) 1.4 x10^3/uL (1.0-4.8) Monocytes # (Auto) 1.6 x10^3/uL (0.0-1.1) Eosinophils # (Auto) 0.1 x10^3/uL (0.0-0.7) Basophils # (Auto) 0.0 x10^3/uL (0.0-0.2) Sodium Level 131 mmol/L (136-145) Potassium Level 4.7 mmol/L (3.5-5.1) Chloride Level 94 mmol/L (98-107) Carbon Dioxide Level 17 mmol/L (21-32) Anion Gap 20 (6-14) Blood Urea Nitrogen 77 mg/dL (8-26) Creatinine 7.7 mg/dL (0.7-1.3) Estimated GFR (Cockcroft-Gault) 7.2 BUN/Creatinine Ratio 10 (6-20) Glucose Level 95 mg/dL (70-99) Calcium Level 7.5 mg/dL (8.5-10.1) Total Bilirubin 0.7 mg/dL (0.2-1.0) Aspartate Amino Transf (AST/SGOT) 61 U/L (15-37) Alanine Aminotransferase (ALT/SGPT) 78 U/L (16-63) Alkaline Phosphatase 91 U/L (46-116) Total Protein 7.1 g/dL (6.4-8.2) Albumin 3.2 g/dL (3.4-5.0) Albumin/Globulin Ratio 0.8 (1.0-1.7) Hepatitis A IgM Antibody Nonreactive (Nonreactive) Hepatitis B Surface Antigen Nonreactive (Nonreactive) Hepatitis B Core IgM Antibody Nonreactive (Nonreactive) Hepatitis C IgG Antibody Nonreactive (Nonreactive) Laboratory Tests Test 05/27/21 15:55 05/27/21 16:36 Urine Collection Type U cath Urine Color (Auto) Yellow Urine Turbidity Clear Urine pH (Auto) 5.0 (<5.0-8.0) Urine Specific [place] 1.007 (1.000-1.030) Urine Protein (Auto) Negative mg/dL (Negative) Urine Glucose (Auto)(UA) Negative mg/dL (Negative) Urine Ketones (Auto) Negative mg/dL (Negative) Urine Blood (Auto) Small (Negative) Urine Nitrite Negative (Negative) Urine Bilirubin (Auto) Negative (Negative) Urine Urobilinogen (Auto) Normal mg/dL (Normal) Urine Leukocyte Esterase (Auto) Negative (Negative) Urine RBC 1-2 /HPF (0-2) Urine WBC 1-4 /HPF (0-4) Urine Transitional Epithelial Cells Occ /LPF Urine Bacteria 0 /HPF (0-FEW) White Blood Count 13.0 x10^3/uL (4.0-11.0) Red Blood Count 5.13 x10^6/uL (4.30-5.70) Hemoglobin 14.9 g/dL (13.0-17.5) Hematocrit 44.4 % (39.0-53.0) Mean Corpuscular Volume 87 fL (79-100) Mean Corpuscular Hemoglobin 29 pg (25-35) Mean Corpuscular Hemoglobin Concent 34 g/dL (31-37) Red Cell Distribution Width 13.7 % (11.5-14.5) Platelet Count 176 x10^3/uL (140-400) Neutrophils (%) (Auto) 76 % (31-73) Lymphocytes (%) (Auto) 11 % (24-48) Monocytes (%) (Auto) 12 % (0-9) Eosinophils (%) (Auto) 1 % (0-3) Basophils (%) (Auto) 0 % (0-3) Neutrophils # (Auto) 9.9 x10^3/uL (1.8-7.7) Lymphocytes # (Auto) 1.4 x10^3/uL (1.0-4.8) Monocytes # (Auto) 1.6 x10^3/uL (0.0-1.1) Eosinophils # (Auto) 0.1 x10^3/uL (0.0-0.7) Basophils # (Auto) 0.0 x10^3/uL (0.0-0.2) Sodium Level 131 mmol/L (136-145) Potassium Level 4.7 mmol/L (3.5-5.1) Chloride Level 94 mmol/L (98-107) Carbon Dioxide Level 17 mmol/L (21-32) Anion Gap 20 (6-14) Blood Urea Nitrogen 77 mg/dL (8-26) Creatinine 7.7 mg/dL (0.7-1.3) Estimated GFR (Cockcroft-Gault) 7.2 BUN/Creatinine Ratio 10 (6-20) Glucose Level 95 mg/dL (70-99) Calcium Level 7.5 mg/dL (8.5-10.1) Total Bilirubin 0.7 mg/dL (0.2-1.0) Aspartate Amino Transf (AST/SGOT) 61 U/L (15-37) Alanine Aminotransferase (ALT/SGPT) 78 U/L (16-63) Alkaline Phosphatase 91 U/L (46-116) Total Protein 7.1 g/dL (6.4-8.2) Albumin 3.2 g/dL (3.4-5.0) Albumin/Globulin Ratio 0.8 (1.0-1.7) Hepatitis A IgM Antibody Nonreactive (Nonreactive) Hepatitis B Surface Antigen Nonreactive (Nonreactive) Hepatitis B Core IgM Antibody Nonreactive (Nonreactive) Hepatitis C IgG Antibody Nonreactive (Nonreactive) Review All relevant outside records, renal labs, imaging studies, telemetry/EKG's were reviewed. Images Images PROCEDURE: RENAL COMPLETE BILATERAL EXAM: RENAL ULTRASOUND CLINICAL HISTORY: Reason: urinary retention / Spl. Instructions: / History: COMPARISON: None available. TECHNIQUE: Ultrasound examination of the bilateral kidneys and urinary bladder was performed. FINDINGS: Right kidney measures 12.4 cm long axis. No hydronephrosis. Left kidney measures 12.7 cm in long axis. No hydronephrosis. Simple cyst in the left kidney measuring up to 3.5 cm Bladder is decompressed not well evaluated. Visualized portions aorta and IVC are unremarkable. IMPRESSION: No hydronephrosis. Bladder is decompressed.\\ CT abdomen/Pelvis w/o Contrast IMPRESSION: * Bilateral perinephric stranding is seen right greater than left with some distention of the right ureter also identified. Is also some fluid and edema tracking adjacent to the right ureter and also seen tracking adjacent to the loops of bowel the right lower quadrant. Could be related to urinary tract causes such as urinary tract infection or recently passed urinary tract stone. In addition this area of edema and fluid is also seen adjacent to the partially visualized suspected appendix with the appendix mildly dilated with fluid and air with portions of the appendix obscured secondary to lack of contrast and multiple unopacified loops of bowel within the region. Given this dilatation and fluid with edema in the region would correlate with symptoms since appendicitis cannot be excluded on this examination and CT with intravenous and oral contrast could better assess the GI tract given that it is unclear whether this fluid and edema is associated with a right renal/ureter process or if it is related to appendiceal inflammation. * There is also some wall thickening of the distal colon at the distal sigmoid and rectum with adjacent edema and fluid. Causes such as a distal colitis is not excluded. * There is a tortuous redundant appearance of the large bowel. * Suspected cystic lesion left kidney. * There is some edema to the fat seen adjacent to the prostate which appears enlarged. Could be associated with the adjacent distal sigmoid to rectal inflammation but superimposed prostatitis is not excluded given this finding. Electronically signed by: Edinson Jaramillo MD (05/27/2021 5:01 PM) [id number] RODRIGO NGO MD May 28, 2021 09:43
[2021-05-28 09:46] LABS: CALCIUM 8.3 mg/dL (8.5-10.1); CREATININE 3.7 mg/dL (0.7-1.3); GFR 16.7; POTASSIUM 4.8 mmol/L (3.5-5.1)
--- NOTE | 2021-05-28 10:12 | NUR ---
SW following. Discussed with RN, pt from home with spouse, room air, regular diet. Surgery, nephrology and urology following. RN advised no SW needs at this time. SW will continue to follow.
[2021-05-28 10:50] VITALS: BP 135/85
[2021-05-28] MEDS ORDERED: IV RINGERS,LACTATED 1000ML 1,000 ML IV ONE (12:15)
--- NOTE | 2021-05-28 12:18 | PDOC ---
[employer] PROGRESS NOTE Date of Service DOS: DATE: 05/28/21 TIME: 12:15 Chief Complaint Chief Complaint Intractable abdominal/pelvis pain - acute urinary retention, sepsis, prostatitis, early pyelonephritis Urinary retention -likely due to acute prostatitis. Will maintain Santa catheter. Consult urology for further recommendations. Tamsulosin twice daily for now. Constipation -aggressive bowel regimen. Possibly secondary to prostatitis. GERRY - obstructive uropathy from prostatitis Hyponatremia - hypovolemic - change fluid to LR for additional liter, Anion gap metabolic acidosis - better, but hyperchlor from the iv fluid Uremia - Transaminitis History of Present Illness History of Present Illness pain gone, feesl much beter will cont eh IV abx, renal functino better, GFR est above 15 now, reg diet, not chronic renal , acute obs, Vitals/I&O Vitals/I&O: Vital Signs Date Time Temp Pulse Resp B/P (MAP) Pulse Ox O2 Delivery O2 Flow Rate FiO2 05/28/21 10:50 98.1 72 18 135/85 (102) 93 Room Air 98.1 I & O 05/27/21 05/27/21 05/28/21 15:00 23:00 07:00 Intake Total 1440 ml Output Total 4025 ml 6300 ml Balance -4025 ml -4860 ml Physical Exam General: Alert, Oriented X3, Cooperative Heart: Regular rate, Normal S1, Normal S2 Abdomen: Soft, No tenderness, Other (ND) Extremities: No clubbing, No cyanosis Skin: No rashes, No breakdown Labs Labs: Laboratory Tests Test 05/27/21 15:55 05/27/21 16:36 05/28/21 08:50 Urine Collection Type U cath Urine Color (Auto) Yellow Urine Turbidity Clear Urine pH (Auto) 5.0 (<5.0-8.0) Urine Specific [place] 1.007 (1.000-1.030) Urine Protein (Auto) Negative mg/dL (Negative) Urine Glucose (Auto)(UA) Negative mg/dL (Negative) Urine Ketones (Auto) Negative mg/dL (Negative) Urine Blood (Auto) Small (Negative) Urine Nitrite Negative (Negative) Urine Bilirubin (Auto) Negative (Negative) Urine Urobilinogen (Auto) Normal mg/dL (Normal) Urine Leukocyte Esterase (Auto) Negative (Negative) Urine RBC 1-2 /HPF (0-2) Urine WBC 1-4 /HPF (0-4) Urine Transitional Epithelial Cells Occ /LPF Urine Bacteria 0 /HPF (0-FEW) White Blood Count 13.0 x10^3/uL (4.0-11.0) Red Blood Count 5.13 x10^6/uL (4.30-5.70) Hemoglobin 14.9 g/dL (13.0-17.5) Hematocrit 44.4 % (39.0-53.0) Mean Corpuscular Volume 87 fL (79-100) Mean Corpuscular Hemoglobin 29 pg (25-35) Mean Corpuscular Hemoglobin Concent 34 g/dL (31-37) Red Cell Distribution Width 13.7 % (11.5-14.5) Platelet Count 176 x10^3/uL (140-400) Neutrophils (%) (Auto) 76 % (31-73) Lymphocytes (%) (Auto) 11 % (24-48) Monocytes (%) (Auto) 12 % (0-9) Eosinophils (%) (Auto) 1 % (0-3) Basophils (%) (Auto) 0 % (0-3) Neutrophils # (Auto) 9.9 x10^3/uL (1.8-7.7) Lymphocytes # (Auto) 1.4 x10^3/uL (1.0-4.8) Monocytes # (Auto) 1.6 x10^3/uL (0.0-1.1) Eosinophils # (Auto) 0.1 x10^3/uL (0.0-0.7) Basophils # (Auto) 0.0 x10^3/uL (0.0-0.2) Sodium Level 131 mmol/L (136-145) 145 mmol/L (136-145) Potassium Level 4.7 mmol/L (3.5-5.1) 4.8 mmol/L (3.5-5.1) Chloride Level 94 mmol/L (98-107) 111 mmol/L (98-107) Carbon Dioxide Level 17 mmol/L (21-32) 24 mmol/L (21-32) Anion Gap 20 (6-14) 10 (6-14) Blood Urea Nitrogen 77 mg/dL (8-26) 56 mg/dL (8-26) Creatinine 7.7 mg/dL (0.7-1.3) 3.7 mg/dL (0.7-1.3) Estimated GFR (Cockcroft-Gault) 7.2 16.7 BUN/Creatinine Ratio 10 (6-20) Glucose Level 95 mg/dL (70-99) 110 mg/dL (70-99) Calcium Level 7.5 mg/dL (8.5-10.1) 8.3 mg/dL (8.5-10.1) Total Bilirubin 0.7 mg/dL (0.2-1.0) Aspartate Amino Transf (AST/SGOT) 61 U/L (15-37) Alanine Aminotransferase (ALT/SGPT) 78 U/L (16-63) Alkaline Phosphatase 91 U/L (46-116) Total Protein 7.1 g/dL (6.4-8.2) Albumin 3.2 g/dL (3.4-5.0) Albumin/Globulin Ratio 0.8 (1.0-1.7) Hepatitis A IgM Antibody Nonreactive (Nonreactive) Hepatitis B Surface Antigen Nonreactive (Nonreactive) Hepatitis B Core IgM Antibody Nonreactive (Nonreactive) Hepatitis C IgG Antibody Nonreactive (Nonreactive) Review of Systems Review of Systems: pain btter hungry, thirstry Assessment and Plan Assessmemt and Plan Problems Medical Problems: (1) GERRY (acute kidney injury) Status: Acute (2) Urinary retention Status: Acute Comment Review of Relevant I have reviewed the following items minh (where applicable) has been applied. Medications: Current Medications Medications (Trade) Dose Ordered Sig/Skye Route PRN Reason Start Time Stop Time Status Last Admin Dose Admin Tamsulosin HCl (Flomax) 0.4 mg BID PO 05/27/21 21:00 05/28/21 08:46 Heparin Sodium (Porcine) (Heparin Sodium) 5,000 unit Q8HRS SQ 05/27/21 22:00 05/28/21 06:19 Psyllium Hydrophilic Mucilloid (Metamucil Fiber Packet) 1 pkt QHS PO 05/27/21 21:00 05/27/21 21:36 Sodium Chloride 1,000 ml @ 125 mls/hr 1X ONCE IV 05/27/21 18:00 05/28/21 01:59 DC 05/27/21 18:42 Piperacillin Sod/ Tazobactam Sod 2.25 gm/Sodium Chloride 50 ml @ 100 mls/hr Q8H IV 05/27/21 19:00 05/28/21 02:44 Justifications for Admission Other Justification WINDY CAMARGO MD May 28, 2021 12:18
--- NOTE | 2021-05-28 12:40 | PDOC2 ---
UROLOGY CONSULT DOS: DATE: 05/28/21 TIME: 12:33 65M admitted to the hospital for urinary retention and acute kidney injury. Patient states that he was having urinary frequency, dysuria. He was seen at an urgent care on Tuesday and started on ciprofloxacin and Flomax. He then went into acute urinary retention and was unable to void over the last 3 days. Creatinine elevated at 7.7. He has never had this happen before. He initially was having abdominal pain associated with the retention which has now resolved. He has never had this happen before. He does report weak to moderate urine stream at baseline. He denies any frequency urgency at baseline. He has never required a Asnta in the past. CT imaging was performed in the ER showing bilateral perinephric stranding as well as enlarged prostate. Renal ultrasound is negative for hydronephrosis. When Santa was placed, patient had over 1700 cc in urine return. He has never seen urology in the past. Denies chronic medical history of previous surgeries. ROS Constitutional: Denies fevers, chills, weakness Cardiovascular: Denies chest pain, palpitations Respiratory: Denies shortness of breath, wheezing, dyspnea on exertion GI: Denies abdominal pain, nausea, vomiting : Reports urinary retention, frequency and urgency, denies gross hematuria or flank pain Skin: Denies rash, bruising Musculoskeletal: Denies extremity pain, extremity edema Psychiatric: Denies stress, anxiety Past Surgical History: No pertinent history Current Medications Current Medications Tamsulosin HCl (Flomax) 0.4 mg BID PO Last administered on 05/28/21at 08:46; Start 05/27/21 at 21:00 Acetaminophen (Tylenol) 650 mg PRN Q6HRS PRN PO MILD PAIN / TEMP > 100.3'F; Start 05/27/21 at 17:30 Ondansetron HCl (Zofran) 4 mg PRN Q4HRS PRN IVP NAUSEA/VOMITING; Start 05/27/21 at 17:30 Tramadol HCl (Ultram) 50 mg PRN Q6HRS PRN PO PAIN; Start 05/27/21 at 17:30 Fentanyl Citrate (Fentanyl 2ml Vial) 25 mcg PRN Q3HRS PRN IVP SEVERE PAIN 7-10; Start 05/27/21 at 17:30 Heparin Sodium (Porcine) (Heparin Sodium) 5,000 unit Q8HRS SQ Last administered on 05/28/21at 06:19; Start 05/27/21 at 22:00 Psyllium Hydrophilic Mucilloid (Metamucil Fiber Packet) 1 pkt QHS PO Last administered on 05/27/21at 21:36; Start 05/27/21 at 21:00 Polyethylene Glycol (miraLAX PACKET) 17 gm PRN BID PRN PO CONSTIPATION; Start 05/27/21 at 17:30 Tamsulosin HCl (Flomax) 0.4 mg 1X ONCE PO ; Start 05/27/21 at 18:00; Stop 05/27/21 at 18:05; Status DC Piperacillin Sod/ Tazobactam Sod (Zosyn Per Pharmacy) 1 each PRN DAILY PRN MC SEE COMMENTS; Start 05/27/21 at 18:00 Sodium Chloride 1,000 ml @ 125 mls/hr 1X ONCE IV Last administered on 05/27/21at 18:42; Start 05/27/21 at 18:00; Stop 05/28/21 at 01:59; Status DC Ondansetron HCl (Zofran) 4 mg PRN Q8HRS PRN IVP NAUSEA/VOMITING; Start 05/27/21 at 18:00; Stop 05/28/21 at 17:59 Morphine Sulfate (Morphine Sulfate) 2 mg PRN Q2HR PRN IVP PAIN; Start 05/27/21 at 18:00; Stop 05/28/21 at 17:59 Piperacillin Sod/ Tazobactam Sod 2.25 gm/Sodium Chloride 50 ml @ 100 mls/hr Q8H IV Last administered on 05/28/21at 02:44; Start 05/27/21 at 19:00; Stop 05/28/21 at 12:25; Status DC Ringer's Solution 1,000 ml @ 125 mls/hr 1X ONCE IV ; Start 05/28/21 at 12:15; Stop 05/28/21 at 20:14 Piperacillin Sod/ Tazobactam Sod 2.25 gm/Sodium Chloride 50 ml @ 100 mls/hr Q6HRS IV ; Start 05/28/21 at 13:00 Lactobacillus Rhamnosus (Culturelle) 1 cap BID PO ; Start 05/28/21 at 21:00 Allergies: Coded Allergies: No Known Drug Allergies (Unverified , 3/23/22) Physical Examination GENERAL: awake, alert, oriented SKIN: warm, dry RESPIRATORY: Aerating well, symmetrical expansion GI: Soft, nontender, no guarding, no rebound : Santa with clear yellow urine output, rectal exam deferred, no CVA tenderness MUSCULOSKELETAL: Moves all extremities, no edema NEURO: No gross abnormalities PSYCHIATRIC: Normal mood, normal affect, pleasant DOES THIS PATIENT HAVE URINARY: Yes VITALS Vital Signs Date Time Temp Pulse Resp B/P (MAP) Pulse Ox O2 Delivery O2 Flow Rate FiO2 05/28/21 10:50 98.1 72 18 135/85 (102) 93 Room Air 98.1 Labs Laboratory Tests Test 05/27/21 15:55 05/27/21 16:36 05/28/21 08:50 Urine Collection Type U cath Urine Color (Auto) Yellow Urine Turbidity Clear Urine pH (Auto) 5.0 (<5.0-8.0) Urine Specific [place] 1.007 (1.000-1.030) Urine Protein (Auto) Negative mg/dL (Negative) Urine Glucose (Auto)(UA) Negative mg/dL (Negative) Urine Ketones (Auto) Negative mg/dL (Negative) Urine Blood (Auto) Small (Negative) Urine Nitrite Negative (Negative) Urine Bilirubin (Auto) Negative (Negative) Urine Urobilinogen (Auto) Normal mg/dL (Normal) Urine Leukocyte Esterase (Auto) Negative (Negative) Urine RBC 1-2 /HPF (0-2) Urine WBC 1-4 /HPF (0-4) Urine Transitional Epithelial Cells Occ /LPF Urine Bacteria 0 /HPF (0-FEW) White Blood Count 13.0 x10^3/uL (4.0-11.0) Red Blood Count 5.13 x10^6/uL (4.30-5.70) Hemoglobin 14.9 g/dL (13.0-17.5) Hematocrit 44.4 % (39.0-53.0) Mean Corpuscular Volume 87 fL (79-100) Mean Corpuscular Hemoglobin 29 pg (25-35) Mean Corpuscular Hemoglobin Concent 34 g/dL (31-37) Red Cell Distribution Width 13.7 % (11.5-14.5) Platelet Count 176 x10^3/uL (140-400) Neutrophils (%) (Auto) 76 % (31-73) Lymphocytes (%) (Auto) 11 % (24-48) Monocytes (%) (Auto) 12 % (0-9) Eosinophils (%) (Auto) 1 % (0-3) Basophils (%) (Auto) 0 % (0-3) Neutrophils # (Auto) 9.9 x10^3/uL (1.8-7.7) Lymphocytes # (Auto) 1.4 x10^3/uL (1.0-4.8) Monocytes # (Auto) 1.6 x10^3/uL (0.0-1.1) Eosinophils # (Auto) 0.1 x10^3/uL (0.0-0.7) Basophils # (Auto) 0.0 x10^3/uL (0.0-0.2) Sodium Level 131 mmol/L (136-145) 145 mmol/L (136-145) Potassium Level 4.7 mmol/L (3.5-5.1) 4.8 mmol/L (3.5-5.1) Chloride Level 94 mmol/L (98-107) 111 mmol/L (98-107) Carbon Dioxide Level 17 mmol/L (21-32) 24 mmol/L (21-32) Anion Gap 20 (6-14) 10 (6-14) Blood Urea Nitrogen 77 mg/dL (8-26) 56 mg/dL (8-26) Creatinine 7.7 mg/dL (0.7-1.3) 3.7 mg/dL (0.7-1.3) Estimated GFR (Cockcroft-Gault) 7.2 16.7 BUN/Creatinine Ratio 10 (6-20) Glucose Level 95 mg/dL (70-99) 110 mg/dL (70-99) Calcium Level 7.5 mg/dL (8.5-10.1) 8.3 mg/dL (8.5-10.1) Total Bilirubin 0.7 mg/dL (0.2-1.0) Aspartate Amino Transf (AST/SGOT) 61 U/L (15-37) Alanine Aminotransferase (ALT/SGPT) 78 U/L (16-63) Alkaline Phosphatase 91 U/L (46-116) Total Protein 7.1 g/dL (6.4-8.2) Albumin 3.2 g/dL (3.4-5.0) Albumin/Globulin Ratio 0.8 (1.0-1.7) Hepatitis A IgM Antibody Nonreactive (Nonreactive) Hepatitis B Surface Antigen Nonreactive (Nonreactive) Hepatitis B Core IgM Antibody Nonreactive (Nonreactive) Hepatitis C IgG Antibody Nonreactive (Nonreactive) Laboratory Tests Test 05/27/21 15:55 05/27/21 16:36 05/28/21 08:50 Urine Collection Type U cath Urine Color (Auto) Yellow Urine Turbidity Clear Urine pH (Auto) 5.0 (<5.0-8.0) Urine Specific [place] 1.007 (1.000-1.030) Urine Protein (Auto) Negative mg/dL (Negative) Urine Glucose (Auto)(UA) Negative mg/dL (Negative) Urine Ketones (Auto) Negative mg/dL (Negative) Urine Blood (Auto) Small (Negative) Urine Nitrite Negative (Negative) Urine Bilirubin (Auto) Negative (Negative) Urine Urobilinogen (Auto) Normal mg/dL (Normal) Urine Leukocyte Esterase (Auto) Negative (Negative) Urine RBC 1-2 /HPF (0-2) Urine WBC 1-4 /HPF (0-4) Urine Transitional Epithelial Cells Occ /LPF Urine Bacteria 0 /HPF (0-FEW) White Blood Count 13.0 x10^3/uL (4.0-11.0) Red Blood Count 5.13 x10^6/uL (4.30-5.70) Hemoglobin 14.9 g/dL (13.0-17.5) Hematocrit 44.4 % (39.0-53.0) Mean Corpuscular Volume 87 fL (79-100) Mean Corpuscular Hemoglobin 29 pg (25-35) Mean Corpuscular Hemoglobin Concent 34 g/dL (31-37) Red Cell Distribution Width 13.7 % (11.5-14.5) Platelet Count 176 x10^3/uL (140-400) Neutrophils (%) (Auto) 76 % (31-73) Lymphocytes (%) (Auto) 11 % (24-48) Monocytes (%) (Auto) 12 % (0-9) Eosinophils (%) (Auto) 1 % (0-3) Basophils (%) (Auto) 0 % (0-3) Neutrophils # (Auto) 9.9 x10^3/uL (1.8-7.7) Lymphocytes # (Auto) 1.4 x10^3/uL (1.0-4.8) Monocytes # (Auto) 1.6 x10^3/uL (0.0-1.1) Eosinophils # (Auto) 0.1 x10^3/uL (0.0-0.7) Basophils # (Auto) 0.0 x10^3/uL (0.0-0.2) Sodium Level 131 mmol/L (136-145) 145 mmol/L (136-145) Potassium Level 4.7 mmol/L (3.5-5.1) 4.8 mmol/L (3.5-5.1) Chloride Level 94 mmol/L (98-107) 111 mmol/L (98-107) Carbon Dioxide Level 17 mmol/L (21-32) 24 mmol/L (21-32) Anion Gap 20 (6-14) 10 (6-14) Blood Urea Nitrogen 77 mg/dL (8-26) 56 mg/dL (8-26) Creatinine 7.7 mg/dL (0.7-1.3) 3.7 mg/dL (0.7-1.3) Estimated GFR (Cockcroft-Gault) 7.2 16.7 BUN/Creatinine Ratio 10 (6-20) Glucose Level 95 mg/dL (70-99) 110 mg/dL (70-99) Calcium Level 7.5 mg/dL (8.5-10.1) 8.3 mg/dL (8.5-10.1) Total Bilirubin 0.7 mg/dL (0.2-1.0) Aspartate Amino Transf (AST/SGOT) 61 U/L (15-37) Alanine Aminotransferase (ALT/SGPT) 78 U/L (16-63) Alkaline Phosphatase 91 U/L (46-116) Total Protein 7.1 g/dL (6.4-8.2) Albumin 3.2 g/dL (3.4-5.0) Albumin/Globulin Ratio 0.8 (1.0-1.7) Hepatitis A IgM Antibody Nonreactive (Nonreactive) Hepatitis B Surface Antigen Nonreactive (Nonreactive) Hepatitis B Core IgM Antibody Nonreactive (Nonreactive) Hepatitis C IgG Antibody Nonreactive (Nonreactive) Assessment/Plan --UTI, prostatitis Would suggest Bactrim DS twice daily x1 month to cover for prostatitis. CT imaging without any signs of abscess. Rectal exam deferred today. Urine culture likely contaminated as patient was recently placed on ciprofloxacin. --Urinary retention Patient has not had a bowel movement since Tuesday. Would recommend aggressive constipation management. After patient has bowel movement, may then proceed with a voiding trial. If patient fails voiding trial, please replace catheter and have patient follow- up in 1 to 2 weeks for a voiding trial in office. Limit opiate use. Increase ambulation. Agree with Flomax 0.4 mg daily. After completing a month of antibiotics, may consider doing a cystoscopy in the clinic for BPH evaluation. This is nonemergent and does not need to be done while hospitalized --Rayo Continue to trend with appropriate urine outflow. Creatinine now 3.7. Patient to follow-up in 1 month with [facility]. Call for appointment at [phone] LALA JAVIER May 28, 2021 12:40
[2021-05-28] MEDS: PIPERACILLIN/TAZOBACTAM 2.25 GM in IV NORMAL SALINE 50ML 50 ML IV SCH ×2 (14:12→17:40)
[2021-05-28 14:58] VITALS: BP 115/92
[2021-05-28 19:00] VITALS: BP 140/81
--- NOTE | 2021-05-28 19:03 | NUR ---
One time dose of Flomax scheduled for 05/27 @ 1800 non-administered on eMAR.
[2021-05-28] MEDS: PSYLLIUM HUSK (SUGAR FREE) 1 PKT PACKET PO SCH (20:46)
[2021-05-28] MEDS: LACTOBACILLUS RHAMNOSUS GG 1 CAPSULE. PO SCH (20:46)
[2021-05-28 23:15] VITALS: BP 157/99
[2021-05-29] MEDS: PIPERACILLIN/TAZOBACTAM 2.25 GM in IV NORMAL SALINE 50ML 50 ML IV SCH ×4 (00:08→23:44)
[2021-05-29 03:14] VITALS: BP 129/81
[2021-05-29] MEDS: HEPARIN for SUB-Q USE 5,000 UNIT/ML VIAL. SQ SCH ×3 (06:39→22:29)
[2021-05-29 07:00] VITALS: BP 166/102
[2021-05-29 07:36] LABS: CALCIUM 8.3 mg/dL (8.5-10.1); CREATININE 1.8 mg/dL (0.7-1.3); GFR 38.3; POTASSIUM 4.4 mmol/L (3.5-5.1)
--- NOTE | 2021-05-29 09:01 | PDOC ---
ELYSIA ROSS RHYTHMIC GYMNASTICS COACH 05/29/21 0901: SURGICAL PROGRESS NOTE DATE: 05/29/21 TIME: 08:59 Subjective Denies pain tolerating diet had a small stool last night ROS: no fevers no CP NO SOA Vital Signs Vital Signs Date Time Temp Pulse Resp B/P (MAP) Pulse Ox O2 Delivery O2 Flow Rate FiO2 05/29/21 07:00 97.8 74 18 166/102 (123) 97 Room Air 97.8 I&O Intake and Output 05/29/21 07:00 Intake Total 2620 ml Output Total 4325 ml Balance -1705 ml Intake Oral 1420 ml IV Total 1200 ml Output Urine Total 4325 ml General: Alert, Oriented X3, Cooperative, No acute distress Lungs: Clear to auscultation, Normal air movement Heart: Regular rate, Normal S1, Normal S2 Abdomen: Soft, No tenderness Neuro: Other (cath in place, clear urine) Labs Laboratory Tests Test 05/27/21 15:55 05/27/21 16:36 05/28/21 08:50 05/29/21 06:25 Urine Collection Type U cath Urine Color (Auto) Yellow Urine Turbidity Clear Urine pH (Auto) 5.0 (<5.0-8.0) Urine Specific [place] 1.007 (1.000-1.030) Urine Protein (Auto) Negative mg/dL (Negative) Urine Glucose (Auto)(UA) Negative mg/dL (Negative) Urine Ketones (Auto) Negative mg/dL (Negative) Urine Blood (Auto) Small (Negative) Urine Nitrite Negative (Negative) Urine Bilirubin (Auto) Negative (Negative) Urine Urobilinogen (Auto) Normal mg/dL (Normal) Urine Leukocyte Esterase (Auto) Negative (Negative) Urine RBC 1-2 /HPF (0-2) Urine WBC 1-4 /HPF (0-4) Urine Transitional Epithelial Cells Occ /LPF Urine Bacteria 0 /HPF (0-FEW) White Blood Count 13.0 x10^3/uL (4.0-11.0) Red Blood Count 5.13 x10^6/uL (4.30-5.70) Hemoglobin 14.9 g/dL (13.0-17.5) Hematocrit 44.4 % (39.0-53.0) Mean Corpuscular Volume 87 fL (79-100) Mean Corpuscular Hemoglobin 29 pg (25-35) Mean Corpuscular Hemoglobin Concent 34 g/dL (31-37) Red Cell Distribution Width 13.7 % (11.5-14.5) Platelet Count 176 x10^3/uL (140-400) Neutrophils (%) (Auto) 76 % (31-73) Lymphocytes (%) (Auto) 11 % (24-48) Monocytes (%) (Auto) 12 % (0-9) Eosinophils (%) (Auto) 1 % (0-3) Basophils (%) (Auto) 0 % (0-3) Neutrophils # (Auto) 9.9 x10^3/uL (1.8-7.7) Lymphocytes # (Auto) 1.4 x10^3/uL (1.0-4.8) Monocytes # (Auto) 1.6 x10^3/uL (0.0-1.1) Eosinophils # (Auto) 0.1 x10^3/uL (0.0-0.7) Basophils # (Auto) 0.0 x10^3/uL (0.0-0.2) Sodium Level 131 mmol/L (136-145) 145 mmol/L (136-145) 145 mmol/L (136-145) Potassium Level 4.7 mmol/L (3.5-5.1) 4.8 mmol/L (3.5-5.1) 4.4 mmol/L (3.5-5.1) Chloride Level 94 mmol/L (98-107) 111 mmol/L (98-107) 112 mmol/L (98-107) Carbon Dioxide Level 17 mmol/L (21-32) 24 mmol/L (21-32) 25 mmol/L (21-32) Anion Gap 20 (6-14) 10 (6-14) 8 (6-14) Blood Urea Nitrogen 77 mg/dL (8-26) 56 mg/dL (8-26) 30 mg/dL (8-26) Creatinine 7.7 mg/dL (0.7-1.3) 3.7 mg/dL (0.7-1.3) 1.8 mg/dL (0.7-1.3) Estimated GFR (Cockcroft-Gault) 7.2 16.7 38.3 BUN/Creatinine Ratio 10 (6-20) Glucose Level 95 mg/dL (70-99) 110 mg/dL (70-99) 95 mg/dL (70-99) Calcium Level 7.5 mg/dL (8.5-10.1) 8.3 mg/dL (8.5-10.1) 8.3 mg/dL (8.5-10.1) Total Bilirubin 0.7 mg/dL (0.2-1.0) Aspartate Amino Transf (AST/SGOT) 61 U/L (15-37) Alanine Aminotransferase (ALT/SGPT) 78 U/L (16-63) Alkaline Phosphatase 91 U/L (46-116) Total Protein 7.1 g/dL (6.4-8.2) Albumin 3.2 g/dL (3.4-5.0) Albumin/Globulin Ratio 0.8 (1.0-1.7) Hepatitis A IgM Antibody Nonreactive (Nonreactive) Hepatitis B Surface Antigen Nonreactive (Nonreactive) Hepatitis B Core IgM Antibody Nonreactive (Nonreactive) Hepatitis C IgG Antibody Nonreactive (Nonreactive) Laboratory Tests Test 05/29/21 06:25 Sodium Level 145 mmol/L (136-145) Potassium Level 4.4 mmol/L (3.5-5.1) Chloride Level 112 mmol/L (98-107) Carbon Dioxide Level 25 mmol/L (21-32) Anion Gap 8 (6-14) Blood Urea Nitrogen 30 mg/dL (8-26) Creatinine 1.8 mg/dL (0.7-1.3) Estimated GFR (Cockcroft-Gault) 38.3 Glucose Level 95 mg/dL (70-99) Calcium Level 8.3 mg/dL (8.5-10.1) Problem List Problems Medical Problems: (1) GERRY (acute kidney injury) Status: Acute (2) Urinary retention Status: Acute Assessment/Plan kidney function improved benign abdominal exam continue constipation management per IPC no surgical plans, will sign off Justicifation of Admission Dx: Justifications for Admission: Justification of Admission Dx: Yes Comments: MACY ÁLVAREZ MD 05/30/21 1104: SURGICAL PROGRESS NOTE Assessment/Plan Agree with above ELYSIA ROSS APRN May 29, 2021 09:01 MACY GILLILAND MD May 30, 2021 11:04
[2021-05-29] MEDS: TAMSULOSIN 0.4 MG CAP.ER.24H. PO SCH ×2 (09:15→21:07)
[2021-05-29] MEDS: LACTOBACILLUS RHAMNOSUS GG 1 CAPSULE. PO SCH ×2 (09:18→21:07)
[2021-05-29 11:00] VITALS: BP 132/82
[2021-05-29] MEDS: DOCUSATE SODIUM 100 MG CAPSULE. PO SCH (12:47)
[2021-05-29] MEDS: POLYETHYLENE GLYCOL 3350 17 GM PACKET. PO SCH ×2 (12:47→21:07)
[2021-05-29] MEDS ORDERED: TAMS0.4C97 PO (12:48)
[2021-05-29] MEDS ORDERED: CIPR500T94 PO (12:48)
--- NOTE | 2021-05-29 12:49 | NUR ---
SW following. Chart reviewed, discharge order for home with self care. No SW needs identified.
--- NOTE | 2021-05-29 13:16 | PDOC ---
DATE OF SERVICE DATE: 05/29/21 TIME: 13:11 SUBJECTIVE ROS No complaints, states feeling great. Family at bedside OBJECTIVE Vital Signs Vital Signs Date Time Temp Pulse Resp B/P (MAP) Pulse Ox O2 Delivery O2 Flow Rate FiO2 05/29/21 08:00 Room Air 05/29/21 07:00 97.8 74 18 166/102 (123) 97 97.8 I & 0 Intake and Output 05/29/21 07:00 Intake Total 2620 ml Output Total 4325 ml Balance -1705 ml Intake Oral 1420 ml IV Total 1200 ml Output Urine Total 4325 ml PHYSICAL EXAM Physical Exam General: NAD HEENT: Atraumatic, PERRLA, EOMI, Mucous membr. moist/pink Neck Supple Lungs: Clear to auscultation, Non labored Heart: S1S2, RRR, no thrills, no rubs, no gallops, no murmurs Abdomen: Normal bowel sounds, Soft, No hepatosplenomegaly, Extremities: No clubbing, No cyanosis, No edema, Skin: No rashes, Neuro: Normal gait, Normal speech, Strength at 5/5 X4 ext, Normal tone, Sensation intact, Cranial nerves 3-12 NL, Reflexes 2+ Psych/Mental Status: Mental status NL, Mood NL Lopez Placed in the ER , No SP or CVA tenderness at present DIAGNOSIS/ASSESSMENT Assessment & Plan GERRY - 2/2Urinary Retention/ No e/o Hydronephrosis on US.UA unremarkable, No UTI at present, reports has been treated for UTI in UC with Abx . Had 1.7 Lt Urinary retention , currently has Lopez .. Recommend Voiding trial before dc if lopez dced . Maintain fluid balance/Hydration, Renal function improving(baseline unknown) . E-Lytes stable, Avoid Nephrotoxins Hyponatremia POA -likely hypovolemic; resolved with IVF Acidosis- POA- 2/2 GERRY- resolved Abnormal CT abdomen - Bilateral perinephric stranding with fluid and edema tracking adjacent to the right ureter and also seen tracking adjacent to the loops of bowel the right lower quadrant Suspect urinary tract causes such as urinary tract infection or recently passed urinary tract stone. UA unremarbale - No UTI, No Micr hematuria Intractable abdominal pain POA -likely due to urinary retention early pyelonephritis. Urinary retention -likely due to acute prostatitis. Lopez catheter. Seen by urology DC per primary/Urology. Recommend fu Labs with PCP 4-5 days . COMMENT/RELEVANT DATA Meds Current Medications Medications (Trade) Dose Ordered Sig/Skye Start Time Stop Time Status Last Admin Dose Admin Acetaminophen (Tylenol) 650 mg PRN Q6HRS PRN 05/27/21 17:30 Docusate Sodium (Colace) 100 mg DAILY 05/29/21 11:30 Fentanyl Citrate (Fentanyl 2ml Vial) 25 mcg PRN Q3HRS PRN 05/27/21 17:30 Heparin Sodium (Porcine) (Heparin Sodium) 5,000 unit Q8HRS 05/27/21 22:00 05/29/21 06:39 5,000 UNIT Lactobacillus Rhamnosus (Culturelle) 1 cap BID 05/28/21 21:00 05/29/21 09:18 1 CAP Morphine Sulfate (Morphine Sulfate) 2 mg PRN Q2HR PRN 05/27/21 18:00 05/28/21 17:59 DC Ondansetron HCl (Zofran) 4 mg PRN Q8HRS PRN 05/27/21 18:00 05/28/21 17:59 DC Piperacillin Sod/ Tazobactam Sod (Zosyn Per Pharmacy) 1 each PRN DAILY PRN 05/27/21 18:00 Piperacillin Sod/ Tazobactam Sod 2.25 gm/Sodium Chloride 50 ml @ 100 mls/hr Q6HRS 05/28/21 13:00 05/29/21 06:34 100 MLS/HR Polyethylene Glycol (miraLAX PACKET) 17 gm BID 05/29/21 11:30 Psyllium Hydrophilic Mucilloid (Metamucil Fiber Packet) 1 pkt QHS 05/27/21 21:00 05/28/21 20:46 1 PKT Ringer's Solution 1,000 ml @ 125 mls/hr 1X ONCE 05/28/21 12:15 05/28/21 20:14 DC 05/28/21 12:35 125 MLS/HR Sodium Chloride 1,000 ml @ 125 mls/hr 1X ONCE 05/27/21 18:00 05/28/21 01:59 DC 05/27/21 18:42 125 MLS/HR Tamsulosin HCl (Flomax) 0.4 mg 1X ONCE 05/27/21 18:00 05/27/21 18:05 DC Tramadol HCl (Ultram) 50 mg PRN Q6HRS PRN 05/27/21 17:30 Lab Laboratory Tests Test 05/29/21 06:25 Sodium Level 145 mmol/L (136-145) Potassium Level 4.4 mmol/L (3.5-5.1) Chloride Level 112 mmol/L (98-107) Carbon Dioxide Level 25 mmol/L (21-32) Anion Gap 8 (6-14) Blood Urea Nitrogen 30 mg/dL (8-26) Creatinine 1.8 mg/dL (0.7-1.3) Estimated GFR (Cockcroft-Gault) 38.3 Glucose Level 95 mg/dL (70-99) Calcium Level 8.3 mg/dL (8.5-10.1) Results All relevant outside records, renal labs, imaging studies, telemetry/EKG's were reviewed. Justicifation of Admission Dx: Justifications for Admission: Justification of Admission Dx: Yes RODRIGO NGO MD May 29, 2021 13:16
[2021-05-29 15:28] VITALS: BP 139/68
--- NOTE | 2021-05-29 16:33 | PDOC3 ---
Discharge Summary Visit Information Date of Admission: May 27, 2021 Date of Discharge: May 30, 2021 Final Diagnosis Intractable abdominal/pelvis pain - acute urinary retention, sepsis, prostatitis, early pyelonephritis Urinary retention -likely due to acute prostatitis. Will maintain Lopez c atheter. Consult urology for further recommendations. Tamsulosin twice daily for now. Constipation -aggressive bowel regimen. Possibly secondary to prostatitis. GERRY - obstructive uropathy from prostatitis Hyponatremia - hypovolemic - change fluid to LR for additional liter, Anion gap metabolic acidosis - better, but hyperchlor from the iv fluid Uremia - Transaminitis Problems Medical Problems: (1) GERRY (acute kidney injury) Status: Acute (2) Urinary retention Status: Acute Brief Hospital Course Allergies Allergies Coded Allergies Type Severity Reaction Last Updated Verified No Known Drug Allergies 05/27/21 No Vital Signs Vital Signs Date Time Temp Pulse Resp B/P (MAP) Pulse Ox O2 Delivery O2 Flow Rate FiO2 05/29/21 15:28 98.2 77 16 139/68 (91) 96 Room Air 98.2 Lab Results Laboratory Tests Test 05/27/21 16:36 05/28/21 08:50 05/29/21 06:25 White Blood Count 13.0 x10^3/uL (4.0-11.0) Red Blood Count 5.13 x10^6/uL (4.30-5.70) Hemoglobin 14.9 g/dL (13.0-17.5) Hematocrit 44.4 % (39.0-53.0) Mean Corpuscular Volume 87 fL (79-100) Mean Corpuscular Hemoglobin 29 pg (25-35) Mean Corpuscular Hemoglobin Concent 34 g/dL (31-37) Red Cell Distribution Width 13.7 % (11.5-14.5) Platelet Count 176 x10^3/uL (140-400) Neutrophils (%) (Auto) 76 % (31-73) Lymphocytes (%) (Auto) 11 % (24-48) Monocytes (%) (Auto) 12 % (0-9) Eosinophils (%) (Auto) 1 % (0-3) Basophils (%) (Auto) 0 % (0-3) Neutrophils # (Auto) 9.9 x10^3/uL (1.8-7.7) Lymphocytes # (Auto) 1.4 x10^3/uL (1.0-4.8) Monocytes # (Auto) 1.6 x10^3/uL (0.0-1.1) Eosinophils # (Auto) 0.1 x10^3/uL (0.0-0.7) Basophils # (Auto) 0.0 x10^3/uL (0.0-0.2) Sodium Level 131 mmol/L (136-145) 145 mmol/L (136-145) 145 mmol/L (136-145) Potassium Level 4.7 mmol/L (3.5-5.1) 4.8 mmol/L (3.5-5.1) 4.4 mmol/L (3.5-5.1) Chloride Level 94 mmol/L (98-107) 111 mmol/L (98-107) 112 mmol/L (98-107) Carbon Dioxide Level 17 mmol/L (21-32) 24 mmol/L (21-32) 25 mmol/L (21-32) Anion Gap 20 (6-14) 10 (6-14) 8 (6-14) Blood Urea Nitrogen 77 mg/dL (8-26) 56 mg/dL (8-26) 30 mg/dL (8-26) Creatinine 7.7 mg/dL (0.7-1.3) 3.7 mg/dL (0.7-1.3) 1.8 mg/dL (0.7-1.3) Estimated GFR (Cockcroft-Gault) 7.2 16.7 38.3 BUN/Creatinine Ratio 10 (6-20) Glucose Level 95 mg/dL (70-99) 110 mg/dL (70-99) 95 mg/dL (70-99) Calcium Level 7.5 mg/dL (8.5-10.1) 8.3 mg/dL (8.5-10.1) 8.3 mg/dL (8.5-10.1) Total Bilirubin 0.7 mg/dL (0.2-1.0) Aspartate Amino Transf (AST/SGOT) 61 U/L (15-37) Alanine Aminotransferase (ALT/SGPT) 78 U/L (16-63) Alkaline Phosphatase 91 U/L (46-116) Total Protein 7.1 g/dL (6.4-8.2) Albumin 3.2 g/dL (3.4-5.0) Albumin/Globulin Ratio 0.8 (1.0-1.7) Hepatitis A IgM Antibody Nonreactive (Nonreactive) Hepatitis B Surface Antigen Nonreactive (Nonreactive) Hepatitis B Core IgM Antibody Nonreactive (Nonreactive) Hepatitis C IgG Antibody Nonreactive (Nonreactive) Laboratory Tests Test 05/29/21 06:25 Sodium Level 145 mmol/L (136-145) Potassium Level 4.4 mmol/L (3.5-5.1) Chloride Level 112 mmol/L (98-107) Carbon Dioxide Level 25 mmol/L (21-32) Anion Gap 8 (6-14) Blood Urea Nitrogen 30 mg/dL (8-26) Creatinine 1.8 mg/dL (0.7-1.3) Estimated GFR (Cockcroft-Gault) 38.3 Glucose Level 95 mg/dL (70-99) Calcium Level 8.3 mg/dL (8.5-10.1) Brief Hospital Course Mr. Wright is a 65 old male, admit with low pelvis pain, obstructive uropathy lopez placed abx, started, uro and renal consult creatinine 7.7 on admit, then 3.7, then 1.8, f.u Dr. Polo next week for labs voiding trial before DC 1 mo abx, flomax Discharge Information Condition at Discharge: Improved Follow Up: Weeks Disposition/Orders: D/C to Home Scheduled Ciprofloxacin Hcl (Cipro) 500 Mg Tablet, 1 TAB PO BID for prostatitis for 28 Days, #56 Ref 0 Prescribed by: WINDY CAMARGO on 05/29/21 1248 Tamsulosin Hcl (Flomax) 0.4 Mg Cap.er.24h, 1 CAP PO DAILY for BPH, #30 Ref 1 Prescribed by: WINDY CAMARGO on 05/29/21 1248 Patient Instructions Patient Instructions face to face 26 minutes Justicifation of Admission Dx: Justifications for Admission: Justification of Admission Dx: Yes WINDY CAMARGO MD May 29, 2021 16:33
[2021-05-29 19:35] VITALS: BP 149/88
--- NOTE | 2021-05-29 20:09 | PDOC ---
[employer] PROGRESS NOTE Date of Service DOS: DATE: 05/29/21 TIME: 20:09 Chief Complaint Chief Complaint Intractable abdominal/pelvis pain - acute urinary retention, sepsis, prostatitis, early pyelonephritis Urinary retention -likely due to acute prostatitis. Will maintain Lopez catheter. Consult urology for further recommendations. Tamsulosin twice daily for now. Constipation -aggressive bowel regimen. Possibly secondary to prostatitis. GERRY - obstructive uropathy from prostatitis Hyponatremia - hypovolemic - change fluid to LR for additional liter, Anion gap metabolic acidosis - better, but hyperchlor from the iv fluid Uremia - History of Present Illness History of Present Illness feels well, tried to DC< unable to void, may need to replace lopez, may need to DC with lopez in AM pain gone, feesl much beter will cont eh IV abx, renal functino better, GFR est above 15 now, reg diet, not chronic renal , acute obs, Vitals/I&O Vitals/I&O: Vital Signs Date Time Temp Pulse Resp B/P (MAP) Pulse Ox O2 Delivery O2 Flow Rate FiO2 05/29/21 15:28 98.2 77 16 139/68 (91) 96 Room Air 98.2 I & O 05/28/21 05/28/21 05/29/21 15:00 23:00 07:00 Intake Total 220 ml 598 ml 1802 ml Output Total 2050 ml 1500 ml 775 ml Balance -1830 ml -902 ml 1027 ml Physical Exam General: Alert, Oriented X3, Cooperative, No acute distress Heart: Regular rate, Normal S1, Normal S2 Abdomen: Soft, No tenderness Extremities: No clubbing, No cyanosis Skin: No rashes, No breakdown Labs Labs: Laboratory Tests Test 05/29/21 06:25 Sodium Level 145 mmol/L (136-145) Potassium Level 4.4 mmol/L (3.5-5.1) Chloride Level 112 mmol/L (98-107) Carbon Dioxide Level 25 mmol/L (21-32) Anion Gap 8 (6-14) Blood Urea Nitrogen 30 mg/dL (8-26) Creatinine 1.8 mg/dL (0.7-1.3) Estimated GFR (Cockcroft-Gault) 38.3 Glucose Level 95 mg/dL (70-99) Calcium Level 8.3 mg/dL (8.5-10.1) Assessment and Plan Assessmemt and Plan Problems Medical Problems: (1) GERRY (acute kidney injury) Status: Acute (2) Urinary retention Status: Acute Comment Review of Relevant I have reviewed the following items minh (where applicable) has been applied. Medications: Current Medications Medications (Trade) Dose Ordered Sig/Skye Route PRN Reason Start Time Stop Time Status Last Admin Dose Admin Lactobacillus Rhamnosus (Culturelle) 1 cap BID PO 05/28/21 21:00 05/29/21 09:18 Justifications for Admission Other Justification WINDY CAMRAGO MD May 29, 2021 20:09
[2021-05-29] MEDS: PSYLLIUM HUSK (SUGAR FREE) 1 PKT PACKET PO SCH (21:07)
[2021-05-29 23:19] VITALS: BP 147/94
[2021-05-30 03:17] VITALS: BP 135/84
[2021-05-30] MEDS: PIPERACILLIN/TAZOBACTAM 2.25 GM in IV NORMAL SALINE 50ML 50 ML IV SCH ×2 (05:53→11:57)
[2021-05-30] MEDS: HEPARIN for SUB-Q USE 5,000 UNIT/ML VIAL. SQ SCH ×2 (05:55→14:10)
[2021-05-30 07:00] VITALS: BP 148/87
[2021-05-30 07:35] LABS: CALCIUM 8.4 mg/dL (8.5-10.1); CREATININE 1.4 mg/dL (0.7-1.3); GFR 51.2; POTASSIUM 4.2 mmol/L (3.5-5.1)
[2021-05-30] MEDS: LACTOBACILLUS RHAMNOSUS GG 1 CAPSULE. PO SCH (08:39)
[2021-05-30] MEDS: TAMSULOSIN 0.4 MG CAP.ER.24H. PO SCH (08:39)
[2021-05-30] MEDS: DOCUSATE SODIUM 100 MG CAPSULE. PO SCH (08:40)
[2021-05-30] MEDS: POLYETHYLENE GLYCOL 3350 17 GM PACKET. PO SCH (08:40)
--- NOTE | 2021-05-30 10:09 | PDOC ---
DATE OF SERVICE: DOS: DATE: 05/30/21 TIME: 10:07 SUBJECTIVE ROS Follow-up for GERRY Patient doing feeling much better OBJECTIVE Vital Signs Vital Signs Date Time Temp Pulse Resp B/P (MAP) Pulse Ox O2 Delivery O2 Flow Rate FiO2 05/30/21 08:02 Room Air 05/30/21 07:00 97.9 71 18 148/87 (107) 95 97.9 I & 0 Intake and Output 05/30/21 07:00 Intake Total 1110 ml Output Total 2600 ml Balance -1490 ml Intake Oral 1110 ml Output Urine Total 2600 ml # Voids 1 PHYSICAL EXAM Physical Exam General Appearance: Awake: Alert Oriented x 2 Neck: No JVD or JVP Chest: CTA Major Heart: S1 S2 Abdomen - Soft NTND Extremities - No Edema DIAGNOSIS/ASSESSMENT Assessment & Plan GERRY - 2/2Urinary Retention creatinine pretty close to normal C/baseline Urinary retention will be deferred to primary team/urology Abnormal CT abdomen - Bilateral perinephric stranding: Defer to urology to follow-up as outpatient. Urine not suggestive of UTI per se. We will be available if needed please call with questions concerns COMMENT/RELEVANT DATA Meds Current Medications Medications (Trade) Dose Ordered Sig/Skye Start Time Stop Time Status Last Admin Dose Admin Acetaminophen (Tylenol) 650 mg PRN Q6HRS PRN 05/27/21 17:30 Docusate Sodium (Colace) 100 mg DAILY 05/29/21 11:30 05/30/21 08:40 100 MG Fentanyl Citrate (Fentanyl 2ml Vial) 25 mcg PRN Q3HRS PRN 05/27/21 17:30 Heparin Sodium (Porcine) (Heparin Sodium) 5,000 unit Q8HRS 05/27/21 22:00 05/30/21 05:55 5,000 UNIT Lactobacillus Rhamnosus (Culturelle) 1 cap BID 05/28/21 21:00 05/30/21 08:39 1 CAP Morphine Sulfate (Morphine Sulfate) 2 mg PRN Q2HR PRN 05/27/21 18:00 05/28/21 17:59 DC Ondansetron HCl (Zofran) 4 mg PRN Q8HRS PRN 05/27/21 18:00 05/28/21 17:59 DC Piperacillin Sod/ Tazobactam Sod (Zosyn Per Pharmacy) 1 each PRN DAILY PRN 05/27/21 18:00 Piperacillin Sod/ Tazobactam Sod 2.25 gm/Sodium Chloride 50 ml @ 100 mls/hr Q6HRS 05/28/21 13:00 05/30/21 05:53 100 MLS/HR Polyethylene Glycol (miraLAX PACKET) 17 gm BID 05/29/21 11:30 05/30/21 08:40 17 GM Psyllium Hydrophilic Mucilloid (Metamucil Fiber Packet) 1 pkt QHS 05/27/21 21:00 05/29/21 21:07 1 PKT Ringer's Solution 1,000 ml @ 125 mls/hr 1X ONCE 05/28/21 12:15 05/28/21 20:14 DC 05/28/21 12:35 125 MLS/HR Sodium Chloride 1,000 ml @ 125 mls/hr 1X ONCE 05/27/21 18:00 05/28/21 01:59 DC 05/27/21 18:42 125 MLS/HR Tamsulosin HCl (Flomax) 0.4 mg 1X ONCE 05/27/21 18:00 05/27/21 18:05 DC Tramadol HCl (Ultram) 50 mg PRN Q6HRS PRN 05/27/21 17:30 05/30/21 00:10 50 MG Lab Laboratory Tests Test 05/30/21 06:30 Sodium Level 141 mmol/L (136-145) Potassium Level 4.2 mmol/L (3.5-5.1) Chloride Level 107 mmol/L (98-107) Carbon Dioxide Level 25 mmol/L (21-32) Anion Gap 9 (6-14) Blood Urea Nitrogen 18 mg/dL (8-26) Creatinine 1.4 mg/dL (0.7-1.3) Estimated GFR (Cockcroft-Gault) 51.2 Glucose Level 94 mg/dL (70-99) Calcium Level 8.4 mg/dL (8.5-10.1) Results All relevant outside records, renal labs, imaging studies, telemetry/EKG's were reviewed. Justicifation of Admission Dx: Justifications for Admission: Justification of Admission Dx: Yes MADDISON RUSSO MD May 30, 2021 10:09
[2021-05-30 11:00] VITALS: BP 148/90
[2021-05-30 15:00] VITALS: BP 139/102
[2021-05-30] MEDS ORDERED: CIPR500T94 PO (18:36)
[2021-05-30] MEDS ORDERED: TAMS0.4C97 PO (18:36)
== END 2021-05-30 16:29 | disposition home or self-care (01) | DRG 872 ==
LOC: ER 14:33 → 4 NORTH 18:02 → ER 18:56
PROVIDERS: ADMIT Internal Medicine; ATTEND Internal Medicine
DX: A41.9 Sepsis, unspecified organism (principal); E87.1 Hypo-osmolality and hyponatremia; N41.0 Acute prostatitis; N12 Tubulo-interstitial nephritis, not specified as acute or chronic; N13.8 Other obstructive and reflux uropathy; N17.9 Acute kidney failure, unspecified; E86.1 Hypovolemia; K59.00 Constipation, unspecified; N40.1 Benign prostatic hyperplasia with lower urinary tract symptoms; Z79.899 Other long term (current) drug therapy; R74.01 Elevation of levels of liver transaminase levels
CPT/HCPCS: 36415; 51702; 74176; 76770; 80048; 80053; 81001; 85025; 86705; 86709; 86803; 87086; 87340; 96360; A4314; J1644; J2543; J7030; J7120; 99285-25; G0378